=== PATIENT | female | born 1980 | race Caucasian/White ===

== ENCOUNTER 2016-09-13 08:02 | Emergency (ER) | payer MEDICAID ==
[~2016-09-13] VITALS: Wt 90.9 kg
[~2016-09-13 08:02] MED LIST: ACET325T45 PO; ALBU8.5H5 INH; AMO500 PO; AZIT250T94 PO; BEN50 PO; CEPH-443 PO; CIPR500T4 PO; EPIN0.3P4 IM; FIORICET PO; GUAI120S26 PO; HC1C30 TOP; HYDR-762 PO; HYDR-906 PO; IBUP-1542 PO; LEVO750T25 PO; LORA10CA PO; ONDA4TAB35 PO; PRED20TA PO; PRED50TA PO; PROM5SYR2 PO; UDPVCC PO
[2016-09-13] MEDS ORDERED: ONDANSETRON (ODT) 4 MG TAB ODT STA (08:18)
[2016-09-13] MEDS ORDERED: OSLT75C PO (08:20)
[2016-09-13] MEDS ORDERED: TYL500 PO (08:21)
[2016-09-13] MEDS ORDERED: ONDA4TAB8 PO (08:22)
--- NOTE | 2016-09-13 08:26 | ERD ---
ER Documentation Chief Complaint Date/Time DATE: 09/13/16 TIME: 08:24 Chief Complaint cough, angeles, bodyaches, fever, n/v HPI This is a 35-year-old female presents to the ER with a 3 day history of fever, bone pain, body aches, sore throat, vomiting. Vomiting is nonbilious nonbloody. She denies any diarrhea. Patient has been taking ibuprofen for fever and body pain however it has not worked. Patient did not get her flu shot this year. She denies any chest pain or shortness of breath. There are no sick contacts at home. ROS 12 point review of systems was done, all negative except per HPI. Medications Home Meds Active Scripts Ondansetron Hcl* (Zofran*) 4 Mg Tablet, 4 MG PO Q6H for NAUSEA AND/OR VOMITING, #30 TAB Prov:ARIS TOHMPSON 09/13/16 Acetaminophen* (Tylenol*) 500 Mg Tab, 1000 MG PO Q4H Y for PAIN AND OR ELEVATED TEMP for 3 Days, TAB Prov:ARIS THOMPSON 09/13/16 Oseltamivir Phosphate* (Tamiflu*) 75 Mg Capsule, 75 MG PO BID for 5 Days, CAP Prov:ARIS THOMPSON 09/13/16 Hydrocodone/Acetaminophen ([place]oca 5-325 Tablet) 1 Each Tablet, 1 TAB PO Q6H Y for PAIN, #7 TAB Prov:MARISOL DOUGLASS PA-C 08/15/16 Ibuprofen* (Motrin*) 600 Mg Tab, 600 MG PO Q6, #30 TAB Prov:MARISOL DOUGLASS PA-C 08/15/16 Promethazine HCl/Codeine (Prometh-Codein 6.25-10 mg/5 ml) 5 Ml Syrup, 5 ML PO Q6 , #4 OZ Prov:MARISOL DOUGLASS PA-C 05/03/16 Azithromycin* (Zithromax*) 250 Mg Tablet, 250 MG PO .CIARRA DIRECTED, #6 TAB TAKE 500 MG (2 TABS) THE FIRST DAY THEN 250 MG (1 TAB) DAYS 2-5 Prov:MARISOL DOUGLASS PA-C 05/03/16 Amoxicillin* (Amoxicillin*) 500 Mg Cap, 500 MG PO TID for 10 Days, CAP Prov:PLACIDO MILLARD MD 04/20/16 Ibuprofen* (Motrin*) 600 Mg Tab, 600 MG PO Q6, #16 TAB Prov:PLACIDO MILLARD MD 04/20/16 Epinephrine (Epipen 2-Walt) 0.3 Mg/0.3 Ml Pen.injctr, 0.3 MG IM DIRECTED Y for ALLERGIC REACTION, #1 EA Prov:GENET DIXON NP 01/15/16 Acetamin/Butalbital/Caffeine* (Fioricet*) 1 Tab Tab, 1 TAB PO Q4H Y for PAIN LEVEL 1-5 for 20 Days, TAB Prov:GENET DIXON [employer] 01/15/16 Diphenhydramine Hcl* (Benadryl*) 50 Mg Cap, 50 MG PO Q6 Y for itching/ swelling , #30 CAP Prov:GENET DIXON NP 01/15/16 Prednisone* (Prednisone*) 50 Mg Tablet, 50 MG PO DAILY, #5 TAB Prov:GENET DIXON NP 01/15/16 Prednisone* (Prednisone*) 20 Mg Tab, 40 MG PO DAILY for 5 Days, TAB Prov:RONNY CARPENTER 12/07/15 Hydrocortisone* Topical (Hydrocortisone* Topical) 1%-28.35 Gm Cream..g., 1 APPLIC TOP Q6 Y for ITCHING, #1 TUB Prov:RONNY CARPENTER 12/07/15 Diphenhydramine Hcl* (Benadryl*) 50 Mg Cap, 50 MG PO Q6 Y for RASH, #30 CAP Prov:RONNY CARPENTER 12/07/15 Phenylephrine Not-Rnlbvtq-Oldzisqghrdt* (Promethazine VC Codeine* Syrup) 120 Ml Syrup, 5 ML PO Q6 Y for COUGH, #120 ML Prov:NUPUR NIELSEN DO 08/25/15 Acetaminophen* (Acetaminophen*) 325 Mg Tablet, 650 MG PO Q6 Y for PAIN AND OR ELEVATED TEMP, #30 TAB Prov:NUPUR NIELSEN DO 08/25/15 Levofloxacin* (Levaquin*) 750 Mg Tablet, 750 MG PO DAILY for 7 Days, TAB Prov:NUPUR NIELSEN DO 08/25/15 Loratadine* (Claritin*) 10 Mg Capsule, 10 MG PO DAILY, #30 CAP Prov:GENET DIXON NP 05/04/15 Cephalexin* (Keflex*) 500 Mg Capsule, 500 MG PO QID for 10 Days, CAP Prov:GENET DIXON NP 05/04/15 Fyhkezetypg-K-Nzexrbcnrn Hb* (Guaifenesin* DM Syrup) 120 Ml Syrup, 10 ML PO Q4H Y for COUGH, #1 BOTTLE Prov:GENET DIXON NP 05/04/15 Albuterol Sulfate* (Albuterol Sulfate* HFA) 8.5 Gm Hfa.aer.ad, 1-2 PUFF INH Q4 Y for SHORTNESS OF BREATH, #1 EA Prov:GENET DIXON NP 05/04/15 Hydrocodone Bit-Acetaminophen* (Roca*) 10-325 Mg Tablet, 1 TAB PO Q4H Y for PAIN, #30 TAB Prov:TRACIE BOND 03/24/15 Ciprofloxacin Hcl* (Ciprofloxacin Hcl*) 500 Mg Tablet, 500 MG PO BID for 7 Days , TAB Prov:TRACIE BOND 03/24/15 Ondansetron Hcl* (Zofran* ODT) 4 mg -ODT Tab.disper, 4 MG PO Q8 Y for NAUSEA AND /OR VOMITING, #30 TAB Prov:GENET DIXON NP 03/22/15 Allergies Allergies: Coded Allergies: No Known Drug Allergy (Verified Allergy, Unknown, 08/15/16) PMhx/Soc History of Surgery: Yes (cholecystectomy) Anesthesia Reaction: No Hx Neurological Disorder: No Hx Respiratory Disorders: No Hx Cardiac Disorders: No Hx Psychiatric Problems: No Hx Miscellaneous Medical Probl: Yes (DM TYPE 2 DX 8DAYS AGO) Hx Alcohol Use: No Hx Substance Use: No Hx Tobacco Use: No Physical Exam Vitals Vital Signs Date Time Temp Pulse Resp B/P Pulse Ox O2 Delivery O2 Flow Rate FiO2 09/13/16 08:06 99.3 94 20 161/64 96 Physical Exam GENERAL: The patient is well-developed, well-nourished, in no acute distress. NECK: Cervical spine is non tender with no step off. Supple, no nuchal rigidity HEENT: Atraumatic. Pupils equal, round and reactive to light. Extraocular muscles are grossly intact. Conjunctivae pink, no discharge. Bilateral tympanic membranes are clear with no evidence of erythema, effusion or dulling of the light reflex. Tonsilar erythema with no exudates or uvular deviation. Clear rhinorrhea. RESPIRATORY: Clear to auscultation bilaterally. There are no rales, wheezes or rhonchi. HEART: Regular rate and rhythm. No murmurs, clicks, rubs or gallops. EXTREMITIES: No clubbing or cyanosis. Full range of motion. Grossly neurovascularly intact. NEUROLOGIC: Alert and oriented. Cranial nerves II through XII are intact. SKIN: There is no rash. The skin is warm and dry. Results 24 hrs Current Medications Medications (Trade) Dose Ordered Sig/Sena Route PRN Reason Start Time Stop Time Status Last Admin Dose Admin Acetaminophen/ Hydrocodone Bitart (Roca (5/325)) 1 tab ONCE ONCE PO 09/13/16 08:30 09/13/16 08:31 Ibuprofen (Motrin) 600 mg ONCE ONCE PO 09/13/16 08:30 09/13/16 08:31 Ondansetron HCl (Zofran Odt) 4 mg ONCE STAT ODT 09/13/16 08:18 09/13/16 08:20 DC Procedures/MDM Differential diagnosis includes but is not limited to; Viral URI, influenza, allergic rhinitis, bronchitis, pertussis,pneumonia. This is likely the flu. clinical suspicion for pneumonia is low as patient appears well, is not hypoxic or in any respiratory distress. Additionally, patients physical examination is benign. Plan was discussed with patient they understand and agree. Patient needs to follow up with PCP in 1-2 days or return to ER sooner if symptoms worsen. Departure Diagnosis: Primary Impression: Influenza-like symptoms Condition: Stable Patient Instructions: Influenza (Adult) Additional Instructions: Llame al doctor MAANA y deangelo gilson TOSHIA PARA DENTRO DE 1-2 PARKER.Dgale a la secretaria que nosotros le instruimos hacer esta toshia.Avise o llame si conway condicin se empeora antes de la toshia. Regresa aqui si peor o no mejor. ARIS THOMPSON Sep 13, 2016 08:26
[2016-09-13] MEDS ORDERED: HYDROCODONE/APAP (5/325) TAB PO ONE (08:30)
[2016-09-13] MEDS ORDERED: IBUPROFEN 600 MG TAB PO ONE (08:30)
== END 2016-09-13 08:33 | disposition home or self-care (01) ==
LOC: FTE 08:02
DX: R50.9 Fever, unspecified (principal); J02.9 Acute pharyngitis, unspecified; R11.10 Vomiting, unspecified; E11.9 Type 2 diabetes mellitus without complications
CPT/HCPCS: Z7502; Z7610; 99283

== ENCOUNTER 2016-12-22 14:08 | Emergency (ER) | payer MEDICAID ==
[~2016-12-22] VITALS: Ht 162.6 cm; Wt 110.0 kg
[~2016-12-22 14:08] MED LIST changes: +ONDA4TAB8 PO; +OSLT75C PO; +TYL500 PO
[2016-12-22 14:10] VITALS: Ht 162.6 cm; Wt 110.0 kg
[2016-12-22] MEDS ORDERED: METOCLOPRAMIDE 10 MG INJ IV STA (15:55)
[2016-12-22] MEDS ORDERED: DIPHENHYDRAMINE 50 MG INJ IV STA (15:55)
[2016-12-22] MEDS ORDERED: SOD CHLORIDE 0.9% 500 ML IV STA (15:55)
[2016-12-22] MEDS ORDERED: KETOROLAC 30 MG INJ IV STA (15:55)
[2016-12-22 17:34] LABS: ADD SCAN DIFF NO
[2016-12-22 17:36] LABS: ABNORMAL IP MESSAGE 1; BASOPHIL # 0.1 10^3/ul (0.0-0.1); BASOPHILS % 0.3 % (0.0-2.0); EOSINOPHILS # 0.4 10^3/ul (0.0-0.5); EOSINOPHILS % 2.3 % (0.0-7.0); HEMATOCRIT 42.2 % (37.0-47.0); HEMOGLOBIN 13.3 g/dl (12.0-16.0); LYMPHOCYTES # 5.8 10^3/ul (0.8-2.9); LYMPHOCYTES % 32.1 % (15.0-51.0); MEAN CORPUSCULAR HEMOGLOBIN 26.3 pg (29.0-33.0); MEAN CORPUSCULAR HGB CONC 31.5 g/dl (32.0-37.0); MEAN CORPUSCULAR VOLUME 83.4 fl (82.0-101.0); MEAN PLATELET VOLUME 9.3 fl (7.4-10.4); MONOCYTE # 0.8 10^3/ul (0.3-0.9); MONOCYTES % 4.5 % (0.0-11.0); NEUTROPHIL # 10.9 10^3/ul (1.6-7.5); NEUTROPHILS % 60.3 % (39.0-77.0); PLATELET COUNT 448 10^3/UL (140-415); RED BLOOD COUNT 5.06 10^6/ul (4.20-5.40); RED CELL DISTRIBUTION WIDTH 13.3 % (11.5-14.5); WHITE BLOOD COUNT 18.1 10^3/ul (4.8-10.8)
[2016-12-22 17:44] LABS: ADD UMIC YES; URINE BILIRUBIN (Dip) NEGATIVE (NEGATIVE); URINE BLOOD (Dip) 1+ (NEGATIVE); URINE COLOR LT. YELLOW (YELLOW); URINE GLUCOSE (Dip) NEGATIVE (NEGATIVE); URINE KETONES (Dip) NEGATIVE (NEGATIVE); URINE LEUKOCYTE ESTERASE (Dip) NEGATIVE (NEGATIVE); URINE NITRITE (Dip) NEGATIVE (NEGATIVE); URINE TOTAL PROTEIN (Dip) NEGATIVE (NEGATIVE); URINE UROBILINOGEN (Dip) 0.2 E.U./dL (0.1-1.0)
[2016-12-22 17:52] LABS: INR 0.99; PROTIME 13.1 Sec (12.2-14.2)
[2016-12-22 17:53] LABS: PARTIAL THROMBOPLASTIN TIME 28.9 Sec (25.0-35.0)
[2016-12-22 17:55] LABS: ALBUMIN 4.2 g/dl (3.3-4.9); ALBUMIN/GLOBULIN RATIO 1.1; CALCIUM 9.4 mg/dl (8.4-10.2); CREATININE 0.57 mg/dl (0.44-1.00); POTASSIUM 4.1 mmol/L (3.5-5.1)
[2016-12-22] MEDS ORDERED: FIORICET PO (18:15)
--- NOTE | 2016-12-22 18:22 | ERD ---
ER Documentation Chief Complaint Date/Time DATE: 12/22/16 TIME: 18:19 Chief Complaint DIZZY,NECK PAIN,TMEPLETON X 3 DAYS HPI This patient is a 36-year-old female who presents to the emergency department with complaints of headache and neck pain for the past 3 days. The patient took Tylenol today at 9 AM with no relief of symptoms. Patient is additionally on intermittent episodes of vertigo lasting only 3 minutes. Patient denies syncope, fevers, chills, urinary symptoms, nausea, vomiting, diarrhea, or other symptoms at this time. ROS All systems reviewed and are negative except as per history of present illness. Medications Home Meds Active Scripts Acetamin/Butalbital/Caffeine* (Fioricet*) [id number] Tab, 1 TAB PO Q6H Y for PAIN, #10 TAB Prov:RONNY MELARA PA-C 12/22/16 Ondansetron Hcl* (Zofran*) 4 Mg Tablet, 4 MG PO Q6H for NAUSEA AND/OR VOMITING, #30 TAB Prov:ARIS THOMPSON 09/13/16 Acetaminophen* (Tylenol*) 500 Mg Tab, 1000 MG PO Q4H Y for PAIN AND OR ELEVATED TEMP for 3 Days, TAB Prov:ARIS THOMPSON 09/13/16 Oseltamivir Phosphate* (Tamiflu*) 75 Mg Capsule, 75 MG PO BID for 5 Days, CAP Prov:ARIS THOMPSON 09/13/16 Hydrocodone/Acetaminophen ([place] 5-325 Tablet) 1 Each Tablet, 1 TAB PO Q6H Y for PAIN, #7 TAB Prov:MARISOL DOUGLASS PA-C 08/15/16 Ibuprofen* (Motrin*) 600 Mg Tab, 600 MG PO Q6, #30 TAB Prov:MARISOL DOUGLASS PA-C 08/15/16 Promethazine HCl/Codeine (Prometh-Codein 6.25-10 mg/5 ml) 5 Ml Syrup, 5 ML PO Q6 , #4 OZ Prov:MARISOL DOUGLASS PA-C 05/03/16 Azithromycin* (Zithromax*) 250 Mg Tablet, 250 MG PO .ZPACK DIRECTED, #6 TAB TAKE 500 MG (2 TABS) THE FIRST DAY THEN 250 MG (1 TAB) DAYS 2-5 Prov:MARISOL DOUGLASS PA-C 05/03/16 Amoxicillin* (Amoxicillin*) 500 Mg Cap, 500 MG PO TID for 10 Days, CAP Prov:PLACIDO MILLARD MD 04/20/16 Ibuprofen* (Motrin*) 600 Mg Tab, 600 MG PO Q6, #16 TAB Prov:PLACIDO MILLARD MD 04/20/16 Epinephrine (Epipen 2-Walt) 0.3 Mg/0.3 Ml Pen.injctr, 0.3 MG IM DIRECTED Y for ALLERGIC REACTION, #1 EA Prov:GENET DIXON NP 01/15/16 Acetamin/Butalbital/Caffeine* (Fioricet*) 1 Tab Tab, 1 TAB PO Q4H Y for PAIN LEVEL 1-5 for 20 Days, TAB Prov:GENET DIXON NP 01/15/16 Diphenhydramine Hcl* (Benadryl*) 50 Mg Cap, 50 MG PO Q6 Y for itching/ swelling , #30 CAP Prov:GENET DIXON NP 01/15/16 Prednisone* (Prednisone*) 50 Mg Tablet, 50 MG PO DAILY, #5 TAB Prov:GENET DIXON NP 01/15/16 Prednisone* (Prednisone*) 20 Mg Tab, 40 MG PO DAILY for 5 Days, TAB Prov:RONNY CARPENTER 12/07/15 Hydrocortisone* Topical (Hydrocortisone* Topical) 1%-28.35 Gm Cream..g., 1 APPLIC TOP Q6 Y for ITCHING, #1 TUB Prov:RONNY CARPENTER 12/07/15 Diphenhydramine Hcl* (Benadryl*) 50 Mg Cap, 50 MG PO Q6 Y for RASH, #30 CAP Prov:RONNY CARPENTER 12/07/15 Phenylephrine Jxz-Qpsjevc-Qbgdfmbwxjfe* (Promethazine VC Codeine* Syrup) 120 Ml Syrup, 5 ML PO Q6 Y for COUGH, #120 ML Prov:NUPUR NIELSEN DO 08/25/15 Acetaminophen* (Acetaminophen*) 325 Mg Tablet, 650 MG PO Q6 Y for PAIN AND OR ELEVATED TEMP, #30 TAB Prov:NUPUR NIELSEN DO 08/25/15 Levofloxacin* (Levaquin*) 750 Mg Tablet, 750 MG PO DAILY for 7 Days, TAB Prov:NUPUR NIELSEN 08/25/15 Loratadine* (Claritin*) 10 Mg Capsule, 10 MG PO DAILY, #30 CAP Prov:GENET DIXON NP 05/04/15 Cephalexin* (Keflex*) 500 Mg Capsule, 500 MG PO QID for 10 Days, CAP Prov:GENET DIXON NP 05/04/15 Zjvozyfverv-N-Gagmhudwlb Hb* (Guaifenesin* DM Syrup) 120 Ml Syrup, 10 ML PO Q4H Y for COUGH, #1 BOTTLE Prov:GENET DIXON NP 05/04/15 Albuterol Sulfate* (Albuterol Sulfate* HFA) 8.5 Gm Hfa.aer.ad, 1-2 PUFF INH Q4 Y for SHORTNESS OF BREATH, #1 EA Prov:GENET DIXON NP 05/04/15 Hydrocodone Bit-Acetaminophen* ([place]*) 10-325 Mg Tablet, 1 TAB PO Q4H Y for PAIN, #30 TAB Prov:TRACIE BOND 03/24/15 Ciprofloxacin Hcl* (Ciprofloxacin Hcl*) 500 Mg Tablet, 500 MG PO BID for 7 Days , TAB Prov:TRACIE BOND 03/24/15 Ondansetron Hcl* (Zofran* ODT) 4 mg -ODT Tab.disper, 4 MG PO Q8 Y for NAUSEA AND /OR VOMITING, #30 TAB Prov:GENET DIXON NP 03/22/15 Allergies Allergies: Coded Allergies: No Known Drug Allergy (Verified Allergy, Unknown, 12/22/16) PMhx/Soc History of Surgery: Yes (cholecystectomy) Anesthesia Reaction: No Hx Neurological Disorder: No Hx Respiratory Disorders: No Hx Cardiac Disorders: No Hx Psychiatric Problems: No Hx Miscellaneous Medical Probl: Yes (DM TYPE 2 ) Hx Alcohol Use: No Hx Substance Use: No Hx Tobacco Use: No Smoking Status: Never smoker FmHx Noncontributory for chief complaint Physical Exam Vitals Vital Signs Date Time Temp Pulse Resp B/P Pulse Ox O2 Delivery O2 Flow Rate FiO2 12/22/16 14:10 98.6 93 20 129/60 99 Physical Exam Const: The patient is resting comfortably but appears to be in slight pain. Head: Atraumatic Eyes: Normal Conjunctiva ENT: Normal External Ears, Nose and Mouth. Neck: Full range of motion..~ No meningismus. There is no nuchal rigidity. The patient has mild tenderness palpation of the paraspinal muscles of the cervical spine. Resp: Clear to auscultation bilaterally Cardio: Regular rate and rhythm, no murmurs Abd: Soft, non tender, non distended. Normal bowel sounds Skin: No petechiae or rashes Back: No midline or flank tenderness Ext: No cyanosis, or edema Neur: Awake and alert. No neurological deficits. Cranial nerves intact. Strength and sensation intact bilateral upper and lower extremities. There is no weakness noted to one side of the body. Psych: Normal Mood and Affect Result Diagram: 12/22/16171412/22/165 Results 24 hrs Laboratory Tests Test 12/22/16 17:15 White Blood Count 18.110^3/ul Red Blood Count 5.0610^6/ul Hemoglobin 13.3g/dl Hematocrit 42.2% Mean Corpuscular Volume 83.4fl Mean Corpuscular Hemoglobin 26.3pg Mean Corpuscular Hemoglobin Concent 31.5g/dl Red Cell Distribution Width 13.3% Platelet Count 97538^3/UL Mean Platelet Volume 9.3fl Neutrophils % 60.3% Lymphocytes % 32.1% Monocytes % 4.5% Eosinophils % 2.3% Basophils % 0.3% Nucleated Red Blood Cells % 0.0/100WBC Neutrophils # 10.910^3/ul Lymphocytes # 5.810^3/ul Monocytes # 0.810^3/ul Eosinophils # 0.410^3/ul Basophils # 0.110^3/ul Nucleated Red Blood Cells # 0.010^3/ul Prothrombin Time 13.1Sec Prothrombin Time Ratio 1.0 INR International Normalized Ratio 0.99 Activated Partial Thromboplast Time 28.9Sec Urine Color LT. YELLOW Urine Clarity CLEAR Urine pH 6.0 Urine Specific [place] 1.015 Urine Ketones NEGATIVE Urine Nitrite NEGATIVE Urine Bilirubin NEGATIVE Urine Urobilinogen 0.2 E.U./dL Urine Leukocyte Esterase NEGATIVE Urine Microscopic RBC 2-5/HPF Urine Microscopic WBC 0-2/HPF Urine Epithelial Cells OCCASIONAL Urine Hemoglobin 1+ Urine Glucose NEGATIVE% Urine Total Protein NEGATIVE Sodium Level 137mmol/L Potassium Level 4.1mmol/L Chloride Level 102mmol/L Carbon Dioxide Level 28mmol/L Anion Gap 11 Blood Urea Nitrogen 12mg/dl Creatinine 0.57mg/dl Glucose Level 124mg/dl Calcium Level 9.4mg/dl Total Bilirubin 0.0mg/dl Direct Bilirubin 0.00mg/dl Indirect Bilirubin 0.0mg/dl Aspartate Amino Transf (AST/SGOT) 24IU/L Alanine Aminotransferase (ALT/SGPT) 30IU/L Alkaline Phosphatase 156IU/L Total Protein 8.0g/dl Albumin 4.2g/dl Globulin 3.80g/dl Albumin/Globulin Ratio 1.10 Current Medications Medications (Trade) Dose Ordered Sig/Sena Route PRN Reason Start Time Stop Time Status Last Admin Dose Admin Sodium Chloride (NS) 500 ml @ 500 mls/hr Q1H STAT IV 12/22/16 15:55 12/22/16 16:54 DC 12/22/16 17:18 Metoclopramide HCl (Reglan) 10 mg ONCE STAT IV 12/22/16 15:55 12/22/16 15:58 DC 12/22/16 17:18 Ketorolac Tromethamine (Toradol) 30 mg ONCE STAT IV 12/22/16 15:55 12/22/16 15:58 DC 12/22/16 17:18 Diphenhydramine HCl (Benadryl) 25 mg ONCE STAT IV 12/22/16 15:55 12/22/16 15:58 DC 12/22/16 17:18 Procedures/[facility] EMERGENCY DEPARTMENT COURSE / MEDICAL DECISION MAKING: This is a 28-year-old female who comes to the emergency room secondary to complaints of headache and neck pain. The patient was given IV Toradol, IV Benadryl, and IV Reglan in the department. On re-evaluation, the patient was feeling dramatically improved. Lab results reviewed and showed slight leukocytosis but no left shift. Urinalysis was not concerning for infection or proteinuria. All other lab results were within normal limits. The primary diagnosis is headache of unclear etiology. I have low suspicion for meningitis, CVA, TIA, status migrainosus, or other emergent conditions at this time. Discharge: I have discussed the lab results and diagnostic findings with the patient and answered any questions or concerns. The patient was discharged with a prescription for Fioricet. The patient is to follow-up here in 24 hours for repeat evaluation. The patient was advised to followup with their PMD in 1-2 days and to return to the Emergency Department if there are any new or worsening symptoms. The patient understood and agreed with the diagnosis, treatment and plan. The patient is stable for discharge at this time. I discussed this case with Dr. Obie Voss, supervising ED physician who agreed with the ED course. Departure Diagnosis: Primary Impression: Headache Headache type: unspecified Headache chronicity pattern: acute headache Intractability: not intractable Qualified Code: R51 - Acute nonintractable headache, unspecified headache type Condition: Fair Patient Instructions: Self-Care for Headaches Referrals: [facility] Usted se [place] hecho un examen mdico de control que le indica que no est en gilson condicin que requiera tratamiento urgente en el Departamento de Emergencia. Un estudio ms profundo y el tratamiento de conway condicin pueden esperar sin ningn riesgo hasta que usted sea atendida/o en el consultorio de conway mdico o gilson cl romel. Es responsabilidad suya arreglar gilson kina para el seguimiento del parul. MANEJO DE CONDICIONES NO URGENTES EN EL FUTURO 1) Si usted tiene un mdico de atencin primaria: Usted debera llamar a conway mdico de atencin primaria antes de venir al departamento de emergencia. Despus de las horas de consultorio, conway doctor o conway asociado/a est disponible por telfono. El mdico o enfermero de berta en el servicio telefnico puede asesorarle por silvina medio para atender el problema, o parul contrario se puede programar gilson kina. 2) Si usted no tiene un mdico de atencin primaria: Llame al mdico o clnica de referencia que aparece abajo dale las horas de consultorio para hacer gilson kina para que le vean. CLINICAS: [facility] [phone] [facility] [phone] [facility] [phone] [place] [phone] [address] [place] [id number] [phone] [place] [id number] [phone] Additional Instructions: Regrese en 24 horas por otra evaluacion. Ir a doctor primario in 1-3 henderson. Usar instrucciones cuando carrie medicamento. RONNY MELARA PA-C Dec 22, 2016 18:22
[2016-12-22 18:28] VITALS: BP 133/67; PULSE 86; RESP 16; TEMP 97.9
== END 2016-12-22 18:28 | disposition home or self-care (01) ==
LOC: FTE 14:08
DX: R51 Headache (principal); E11.9 Type 2 diabetes mellitus without complications; M54.2 Cervicalgia
CPT/HCPCS: 36415; 80053; 81001; 85025; 85610; 85730; 96374; 96375; J1200; J1885; J2765; J7040; Z7502; 81003

== ENCOUNTER 2016-12-24 19:31 | Emergency (ER) | payer MEDICAID ==
[~2016-12-24] VITALS: Ht 165.1 cm; Wt 121.0 kg
[2016-12-24 19:39] VITALS: Ht 165.1 cm; Wt 121.0 kg
[2016-12-24] MEDS ORDERED: DICLOFENAC SODIUM 37.5 MG/ML VIAL IV STA (21:11)
[2016-12-24] MEDS ORDERED: [UNRECOGNIZED DRUG - CODE] PO (21:32)
--- NOTE | 2016-12-24 21:32 | RADRPT ---
PROCEDURE: XR Chest. CLINICAL INDICATION: Chest Pain. TECHNIQUE: PA and Lateral views of the chest were obtained. COMPARISON: None. FINDINGS: The soft tissues are normal. The bony elements are normal. The left ventricle is borderline enlarg ed. The cardiomediastinal silhouette and hilar structures are normal. The pulmonary vasculature is normal. There is a left-sided aorta. The lungs are clear. The costophrenic angles are normal. IMPRESSION: 1. Borderline left ventricular enlargement. 2. No evidence of active cardiopulmonary disease. RPTAT:AAJJ Physician Tiff Date Time Electronically viewed and signed by Physician Tiff on 12/24/2016 21:32 /
[2016-12-24] MEDS ORDERED: [UNRECOGNIZED DRUG - CODE] PO (21:33)
[2016-12-24 21:59] LABS: ADD SCAN DIFF NO
[2016-12-24 22:01] LABS: ABNORMAL IP MESSAGE 1; HEMATOCRIT 38.8 % (37.0-47.0); HEMOGLOBIN 12.4 g/dl (12.0-16.0); MEAN CORPUSCULAR HEMOGLOBIN 26.7 pg (29.0-33.0); MEAN CORPUSCULAR VOLUME 83.6 fl (82.0-101.0); MEAN PLATELET VOLUME 9.8 fl (7.4-10.4); PLATELET COUNT 422 10^3/UL (140-415); RED BLOOD COUNT 4.64 10^6/ul (4.20-5.40); RED CELL DISTRIBUTION WIDTH 13.1 % (11.5-14.5); WHITE BLOOD COUNT 17.3 10^3/ul (4.8-10.8)
[2016-12-24 22:11] LABS: ALBUMIN 3.9 g/dl (3.3-4.9); CHLORIDE 97 mmol/L (97-110); SODIUM 138 mmol/L (135-144)
[2016-12-24 22:12] LABS: INR 1.01; POTASSIUM 3.6 mmol/L (3.5-5.1); PROTIME 13.3 Sec (12.2-14.2)
[2016-12-24 22:13] LABS: CREATININE 0.57 mg/dl (0.44-1.00)
[2016-12-24 22:14] LABS: ALANINE AMINOTRANSFERASE 29 IU/L (13-69); ALBUMIN/GLOBULIN RATIO 1.05; ALKALINE PHOSPHATASE 136 IU/L (42-121); ANION GAP 16 (8-16); ASPARTATE AMINO TRANSFERASE 17 IU/L (15-46); BILIRUBIN,INDIRECT 0.1 mg/dl (0-1.1); BILIRUBIN,TOTAL 0.1 mg/dl (0.2-1.3); BLOOD UREA NITROGEN 12 mg/dl (7-20); CARBON DIOXIDE 29 mmol/L (21-31); CREATINE KINASE 46 IU/L (23-200); GLUCOSE 197 mg/dl (70-220); TOTAL PROTEIN 7.6 g/dl (6.1-8.1)
[2016-12-24 22:15] LABS: CALCIUM 9.2 mg/dl (8.4-10.2)
[2016-12-24 22:23] LABS: B-TYPE NATRIURETIC PEPTIDE 61 PG/ML (0-125); CK-MB 0.23 ng/ml (0.0-2.4)
[2016-12-24 22:30] LABS: TROPONIN-I < 0.012 ng/ml (0.00-0.12)
--- NOTE | 2016-12-24 22:36 | ERD ---
ER Documentation Chief Complaint Date/Time DATE: 12/24/16 TIME: 22:31 Chief Complaint MIDSTERNAL CP RADIATING TO LT ARM X3 DAYS. WORSENED TODAY. +SOB. HPI This is a 36-year-old female with no past medical history that presents to the emergency department complaining of midsternal left-sided chest pain that is a dull achy sensation is exacerbated with movement whenever she moves her left upper extremity. She denies any recent remote trauma to her chest wall and is right-handed dominant. She did not take any analgesic medication prior to arrival. She denies any numbness of her upper extremity. She denies any back pain. The patient indicates that the pain began to worsen today therefore she came to the emergency department to be further evaluated. The pain is 7 out of 10 in intensity. She denies any recent travel or prolonged immobilization but does indicate that the pain is worse when she takes in a deep breath. The patient denies any abdominal pain. ROS All systems reviewed and are negative except as per history of present illness. Medications Home Meds Active Scripts Acetaminophen* (Tylenol*) 500 Mg Tab, 1000 MG PO Q4H Y for PAIN AND OR ELEVATED TEMP for 3 Days, TAB Prov:ARIS THOMPSON 09/13/16 Ibuprofen* (Motrin*) 600 Mg Tab, 600 MG PO Q6, #30 TAB Prov:MARISOL DOUGLASS PA-C 08/15/16 Loratadine* (Claritin*) 10 Mg Capsule, 10 MG PO DAILY, #30 CAP Prov:GENET DIXON SHUT OFF WORKER 05/04/15 Reported Medications Flaxseed Oil (FLAXSEED) 1,000 Mg Capsule, 1 TAB-CAP PO, CAP 12/24/16 Multivitamin,Therapeutic (Thera-Tabs) 1 Each Tablet, 1 EACH PO DAILY, TAB 12/24/16 Discontinued Scripts Acetamin/Butalbital/Caffeine* (Fioricet*) [id number] Tab, 1 TAB PO Q6H Y for PAIN, #10 TAB Prov:RONNY MELARA PA-C 12/22/16 Ondansetron Hcl* (Zofran*) 4 Mg Tablet, 4 MG PO Q6H for NAUSEA AND/OR VOMITING, #30 TAB Prov:ARIS THOMPSON 09/13/16 Oseltamivir Phosphate* (Tamiflu*) 75 Mg Capsule, 75 MG PO BID for 5 Days, CAP Prov:ARIS THOMPSON 09/13/16 Hydrocodone/Acetaminophen ([place] 5-325 Tablet) 1 Each Tablet, 1 TAB PO Q6H Y for PAIN, #7 TAB Prov:MARISOL DOUGLASS PA-C 08/15/16 Promethazine HCl/Codeine (Prometh-Codein 6.25-10 mg/5 ml) 5 Ml Syrup, 5 ML PO Q6 , #4 OZ Prov:MARISOL DOUGLASS PA-C 05/03/16 Azithromycin* (Zithromax*) 250 Mg Tablet, 250 MG PO .ZPACK DIRECTED, #6 TAB TAKE 500 MG (2 TABS) THE FIRST DAY THEN 250 MG (1 TAB) DAYS 2-5 Prov:MARISOL DOUGLASS PA-C 05/03/16 Amoxicillin* (Amoxicillin*) 500 Mg Cap, 500 MG PO TID for 10 Days, CAP Prov:PLACIDO MILLARD MD 04/20/16 Ibuprofen* (Motrin*) 600 Mg Tab, 600 MG PO Q6, #16 TAB Prov:PLACIDO MILLARD MD 04/20/16 Epinephrine (Epipen 2-Walt) 0.3 Mg/0.3 Ml Pen.injctr, 0.3 MG IM DIRECTED Y for ALLERGIC REACTION, #1 EA Prov:GENET DIXON NP 01/15/16 Acetamin/Butalbital/Caffeine* (Fioricet*) 1 Tab Tab, 1 TAB PO Q4H Y for PAIN LEVEL 1-5 for 20 Days, TAB Prov:GENET DIXON NP 01/15/16 Diphenhydramine Hcl* (Benadryl*) 50 Mg Cap, 50 MG PO Q6 Y for itching/ swelling , #30 CAP Prov:GENET DIXON NP 01/15/16 Prednisone* (Prednisone*) 50 Mg Tablet, 50 MG PO DAILY, #5 TAB Prov:GENET DIXON NP 01/15/16 Prednisone* (Prednisone*) 20 Mg Tab, 40 MG PO DAILY for 5 Days, TAB Prov:RONNY CARPENTER 12/07/15 Hydrocortisone* Topical (Hydrocortisone* Topical) 1%-28.35 Gm Cream..g., 1 APPLIC TOP Q6 Y for ITCHING, #1 TUB Prov:RONYN CARPENTER S. 12/07/15 Diphenhydramine Hcl* (Benadryl*) 50 Mg Cap, 50 MG PO Q6 Y for RASH, #30 CAP Prov:RONNY CARPENTER S. 12/07/15 Phenylephrine Pwf-Hlvhxbh-Rwbzhaknvsfm* (Promethazine VC Codeine* Syrup) 120 Ml Syrup, 5 ML PO Q6 Y for COUGH, #120 ML Prov:MORALESNUPUR DO 08/25/15 Acetaminophen* (Acetaminophen*) 325 Mg Tablet, 650 MG PO Q6 Y for PAIN AND OR ELEVATED TEMP, #30 TAB [facility] 08/25/15 Levofloxacin* (Levaquin*) 750 Mg Tablet, 750 MG PO DAILY for 7 Days, TAB Prov:[facility] 08/25/15 Cephalexin* (Keflex*) 500 Mg Capsule, 500 MG PO QID for 10 Days, CAP Prov:GENET DIXON NP 05/04/15 Eiozwnsqtri-R-Fakieykwef Hb* (Guaifenesin* DM Syrup) 120 Ml Syrup, 10 ML PO Q4H Y for COUGH, #1 BOTTLE Prov:GENET DIXON NP 05/04/15 Albuterol Sulfate* (Albuterol Sulfate* HFA) 8.5 Gm Hfa.aer.ad, 1-2 PUFF INH Q4 Y for SHORTNESS OF BREATH, #1 EA Prov:GENET DIXON NP 05/04/15 Hydrocodone Bit-Acetaminophen* ([place]*) 10-325 Mg Tablet, 1 TAB PO Q4H Y for PAIN, #30 TAB Prov:TRACIE BOND 03/24/15 Ciprofloxacin Hcl* (Ciprofloxacin Hcl*) 500 Mg Tablet, 500 MG PO BID for 7 Days , TAB Prov:TRACIE BOND 03/24/15 Ondansetron Hcl* (Zofran* ODT) 4 mg -ODT Tab.disper, 4 MG PO Q8 Y for NAUSEA AND /OR VOMITING, #30 TAB Prov:GENET DIXON NP 03/22/15 Allergies Allergies: Coded Allergies: No Known Drug Allergy (Verified Allergy, Unknown, 12/24/16) PMhx/Soc History of Surgery: Yes (cholecystectomy, C SECTION, tubal Ligation ) Anesthesia Reaction: No Hx Neurological Disorder: No Hx Respiratory Disorders: No Hx Cardiac Disorders: No Hx Psychiatric Problems: No Hx Miscellaneous Medical Probl: Yes (DM TYPE 2 ) Hx Alcohol Use: No Hx Substance Use: No Hx Tobacco Use: No Smoking Status: Never smoker Physical Exam Vitals Vital Signs Date Time Temp Pulse Resp B/P Pulse Ox O2 Delivery O2 Flow Rate FiO2 12/24/16 21:39 98.4 89 20 148/96 100 Room Air 12/24/16 19:39 98.9 88 20 139/65 100 Physical Exam Constitutional:Well-developed. Well-nourished. HEENT:Normocephalic. Atraumatic.Pupils were equal round reactive to light. Moist mucous membranes.No tonsillar exudates. Neck: No nuchal rigidity. No lymphadenopathy. No posterior cervical spine tenderness or step-offs. Respiratory: Not using accessory muscles of respiration.Lungs were clear to auscultation bilaterally. No rhonchi. No rales. No wheezing. Cardiovascular: Regular rate regular rhythm.No murmurs. No rubs were appreciated.S1, S2 normal. Distal pulses are palpable 2+ bilaterally. Reproducible left chest wall tenderness with no crepitus no ecchymosis no flail chest GI: Abdomen was soft. Nontender. Non Distended. No pulsatile abdominal masses or bruits. No rebound. No guarding. Bowel sounds were present and normal. Muscle skeletal: Full range of motion of both the upper and lower extremities bilaterally.Normal muscle tone.No assymetrical calf tenderness or swelling. Skin: No petechia, no purpura. No lesions on the palms or the soles of the feet. No maculopapular rash. NEURO: Patient was alert, awake, orientated x3.No facial droop. Gait observed and normal with no ataxia.Speech had regular rate and rhythm. No focal neurological deficits. Result Diagram: 12/24/16204912/24/162049 Results 24 hrs Laboratory Tests Test 12/24/16 20:50 White Blood Count 17.310^3/ul Red Blood Count 4.6410^6/ul Hemoglobin 12.4g/dl Hematocrit 38.8% Mean Corpuscular Volume 83.6fl Mean Corpuscular Hemoglobin 26.7pg Mean Corpuscular Hemoglobin Concent 32.0g/dl Red Cell Distribution Width 13.1% Platelet Count 58707^3/UL Mean Platelet Volume 9.8fl Prothrombin Time 13.3Sec Prothrombin Time Ratio 1.0 INR International Normalized Ratio 1.01 Activated Partial Thromboplast Time 30.0Sec Sodium Level 138mmol/L Potassium Level 3.6mmol/L Chloride Level 97mmol/L Carbon Dioxide Level Pending Anion Gap Pending Blood Urea Nitrogen Pending Creatinine Pending Glucose Level Pending Calcium Level Pending Total Bilirubin Pending Direct Bilirubin Pending Indirect Bilirubin Pending Aspartate Amino Transf (AST/SGOT) Pending Alanine Aminotransferase (ALT/SGPT) Pending Alkaline Phosphatase Pending Creatine Kinase Pending Creatine Kinase Index Pending Creatinine Kinase MB (Mass) Pending Troponin I Pending B-Type Natriuretic Peptide Pending Total Protein Pending Albumin 3.9g/dl Globulin Pending Albumin/Globulin Ratio Pending Serum HCG, Qualitative NEGATIVE Current Medications Medications (Trade) Dose Ordered Sig/Sena Route PRN Reason Start Time Stop Time Status Last Admin Dose Admin Diclofenac Sodium (Dyloject) 37.5 mg ONCE STAT IV 12/24/16 21:11 12/24/16 21:12 DC 12/24/16 21:20 Procedures/MDM The patient presented to the emergency department complaining of chest pain. My clinical evaluation and workup was to distinguish minor causes of chest pain from acute life threatening cardiopulmonary causes such as myocardial infarction , pulmonary embolism, aortic dissection, esophageal rupture, cardiac tamponade, The patient was placed on a grade and center marker, continuous pulse oximetry and IV access established by nursing staff. Patient was given IV dye allergic as well as 325 mg of aspirin p.o., 12 Lead EKG tracing ordered and reviewed by myself showed: Normal sinus rhythm of 88 bpm and no arrhythmia. SD interval normal. QRS duration normal. No ST segment elevation No ST segment depression. No changes consistent with acute ischemia. Obtained a 1 view chest radiograph for and reviewed by myself as well as the radiologist which indicated the followin. Borderline left ventricular enlargement. 2. No evidence of active cardiopulmonary disease. Given that the patient was experiencing no shortness of breath and did obtain a CT scan of the chest with IV contrast which showed no evidence of pulmonary embolism or aortic dissection. The patient had leukocytosis with a white blood cell count of 17.3 and no left shift likely secondary to an acute stress reaction or viral etiology. The patient had no evidence of sepsis and no other electrolyte abnormalities The patients chest pain was reproduced by palpation and horizontal flexion of the arms. It was my clinical impression that the pain was a result of inflammation of the skin and subcutaneous structures of the chest wall versus myocardial ischemia. I felt the patient had low-risk chest pain and could therefore be safely discharged with close follow-up. Departure Diagnosis: Primary Impression: Costochondritis, acute Additional Impression: Pleuritic chest pain Condition: Fair TITI XIE Dec 24, 2016 22:35
[2016-12-24 22:52] LABS: BASOPHIL # 0.2 10^3/ul (0.0-0.1); EOSINOPHILS # 0.5 10^3/ul (0.0-0.5); LYMPHOCYTES # 7.6 10^3/ul (0.8-2.9); MONOCYTE # 0.9 10^3/ul (0.3-0.9); NEUTROPHIL # 7.6 10^3/ul (1.6-7.5)
[2016-12-24] MEDS ORDERED: NAPR-260 PO (22:55)
[2016-12-25] MEDS ORDERED: IOHEXOL 300MG/ML 150 ML BTL ONE (00:19)
[2016-12-25] MEDS ORDERED: SOD CHLORIDE 0.9% 100 ML ONE (00:19)
[2016-12-25 01:00] VITALS: BP 153/79; PULSE 96; RESP 18; TEMP 98.4
--- NOTE | 2016-12-25 01:32 | RADRPT ---
PROCEDURE: CTA CHEST WITH CONTRAST CLINICAL INDICATION: 36-year-old female with shortness of breath. TECHNIQUE: The study was performed utilizing a GE Grid2020peed VCT 64-slice CT scanner. Direct axi al sections were obtained from the thoracic inlet through the chest to the upper abdomen with a bolu s injection of 100 cc of Omnipaque-300 nonionic contrast material. Sagittal, coronal and maximal int ensity projections re-formations were obtained. Automated exposure control and iterative reconstruct ion techniques were utilized for this examination. The images were reviewed on a PACS workstation. CTD/vol = 69.3 mGy; Total Exam DLP = 821.5 mGy-cm. COMPARISON: None. FINDINGS: The aorta is without aneurysmal dilatation or dissection. There are small lymph nodes seen within th e mediastinum which are not pathologic by size criteria. The central pulmonary arteries are without evidence for filling defect to suggest pulmonary embolus or thrombus. There is incomplete opacificat ion of the pulmonary vessels limiting evaluation of the distal branches. There is no evidence for a n infiltrate. No abnormal soft tissue masses or nodular densities are visualized. No evidence for a pneumothorax. There is limbus vertebra involving the anterior-superior aspect of the T12 vertebral body with a Schmorl's node. Scans through the upper abdomen reveals that the upper liver has diffuse decreased density consisten t with fatty infiltration. Surgical clips are seen within the gallbladder fossa from prior cholecys tectomy. The adrenal glands have a normal appearance. The upper kidneys are functional and are with out evidence for obstruction. IMPRESSION: 1. No CTA evidence for thoracic aortic aneurysm/dissection or central pulmonary embolus. 2. Fatty infiltration of the liver. 3. Status post cholecystectomy. .Mervin Zambrano MD, MD Date Time Electronically viewed and signed by .Mervin Zambrano MD, MD on 12/25/2016 01:32 .M/
== END 2016-12-25 01:41 | disposition home or self-care (01) ==
LOC: E/R 19:31
DX: R07.89 Other chest pain (principal); M94.0 Chondrocostal junction syndrome [Tietze]; E11.9 Type 2 diabetes mellitus without complications
CPT/HCPCS: 71010; 71275; 80053; 82550; 82553; 83880; 84484; 84703; 85025; 85610; 85730; 93005; 96374; Q9967; Z7502; Z7610

== ENCOUNTER 2017-01-21 19:19 | Emergency (ER) | payer MEDICAID ==
[~2017-01-21] VITALS: Ht 170.2 cm; Wt 120.0 kg
[~2017-01-21 19:19] MED LIST changes: -ACET325T45 PO; -ALBU8.5H5 INH; -AMO500 PO; -AZIT250T94 PO; -BEN50 PO; -CEPH-443 PO; -CIPR500T4 PO; -EPIN0.3P4 IM; -FIORICET PO; -GUAI120S26 PO; -HC1C30 TOP; -HYDR-762 PO; -HYDR-906 PO; -LEVO750T25 PO; +NAPR-260 PO; -ONDA4TAB35 PO; -ONDA4TAB8 PO; -OSLT75C PO; -PRED20TA PO; -PRED50TA PO; -PROM5SYR2 PO; -UDPVCC PO; +[UNRECOGNIZED DRUG - CODE] PO; +[UNRECOGNIZED DRUG - CODE] PO
[2017-01-21 19:23] VITALS: Ht 170.2 cm; Wt 120.0 kg
[2017-01-21] MEDS ORDERED: FIORICET PO (19:42)
--- NOTE | 2017-01-21 19:42 | ERD ---
ER Documentation Chief Complaint Date/Time DATE: 01/21/17 TIME: 19:40 Chief Complaint NECK PAIN X2 DAYS. HPI This is a 36-year-old female presents to the emergency room for medication refill. The patient states that she does take Fioricet for migraine headaches and ran out of her Fioricet. She states that the Fioricet relieves all of her pain. She states that she called her primary care physician however can get to his office. The patient denies any difference in her migraine from today from her normal migraines. No fever or blurred vision or head trauma. ROS All systems reviewed and are negative except as per history of present illness. Medications Home Meds Active Scripts Naproxen* (Naprosyn*) 500 Mg Tablet, 500 MG PO BID Y for PAIN AND/OR INFLAMMATION, #30 TAB Prov:TITI XIE 12/24/16 Acetaminophen* (Tylenol*) 500 Mg Tab, 1000 MG PO Q4H Y for PAIN AND OR ELEVATED TEMP for 3 Days, TAB Prov:ARIS THOMPSON 09/13/16 Ibuprofen* (Motrin*) 600 Mg Tab, 600 MG PO Q6, #30 TAB Prov:MARISOL DOUGLASS PA-C 08/15/16 Loratadine* (Claritin*) 10 Mg Capsule, 10 MG PO DAILY, #30 CAP Prov:GENET DIXON NP 05/04/15 Reported Medications Flaxseed Oil (FLAXSEED) 1,000 Mg Capsule, 1 TAB-CAP PO, CAP 12/24/16 Multivitamin,Therapeutic (Thera-Tabs) 1 Each Tablet, 1 EACH PO DAILY, TAB 12/24/16 Allergies Allergies: Coded Allergies: No Known Drug Allergy (Verified Allergy, Unknown, 12/24/16) PMhx/Soc History of Surgery: Yes (cholecystectomy, C SECTION, tubal Ligation ) Anesthesia Reaction: No Hx Neurological Disorder: No Hx Respiratory Disorders: No Hx Cardiac Disorders: No Hx Psychiatric Problems: No Hx Miscellaneous Medical Probl: Yes (DM TYPE 2 ) Hx Alcohol Use: No Hx Substance Use: No Hx Tobacco Use: No Smoking Status: Never smoker Physical Exam Vitals Vital Signs Date Time Temp Pulse Resp B/P Pulse Ox O2 Delivery O2 Flow Rate FiO2 01/21/17 19:23 98.8 88 18 140/89 97 Physical Exam Const: No acute distress Head: Atraumatic Eyes: Normal Conjunctiva ENT: Normal External Ears, Nose and Mouth. Neck: Full range of motion..~ No meningismus. Resp: Clear to auscultation bilaterally Cardio: Regular rate and rhythm, no murmurs Abd: Soft, non tender, non distended. Normal bowel sounds Skin: No petechiae or rashes Back: No midline or flank tenderness Ext: No cyanosis, or edema Neur: Awake and alert Psych: Normal Mood and Affect Procedures/MDM This 36-year-old female presents to the emergency room for evaluation of medication refill of her Fioricet. When I evaluated the patient she was alert and oriented to person place and time, no focal neurological deficits. No meningismus, negative Kernig sign, negative urgency sign. Afebrile and hemodynamically stable. The patient will be given a prescription for Fioricet at this time Departure Diagnosis: Primary Impression: Encounter for medication refill Additional Impression: Migraine headache Condition: Stable GONZALO MONTENEGRO DO January 21, 2017 19:42
== END 2017-01-21 20:14 | disposition home or self-care (01) ==
LOC: FTE 19:19
DX: Z76.0 Encounter for issue of repeat prescription (principal); G43.909 Migraine, unspecified, not intractable, without status migrainosus; E11.9 Type 2 diabetes mellitus without complications
CPT/HCPCS: 99281

== ENCOUNTER 2017-02-21 14:18 | Emergency (ER) | payer MEDICAID ==
[~2017-02-21] VITALS: Ht 157.5 cm; Wt 100.0 kg
[~2017-02-21 14:18] MED LIST changes: +FIORICET PO
[2017-02-21 14:20] VITALS: Ht 157.5 cm; Wt 100.0 kg
[2017-02-21] MEDS ORDERED: ACET325T33 PO (14:55)
[2017-02-21] MEDS ORDERED: AMO500 PO (14:55)
--- NOTE | 2017-02-21 15:08 | ERD ---
ER Documentation Chief Complaint Date/Time DATE: 02/21/17 TIME: 15:[address], BODY ACHES X 3 DAYS HPI 36-year-old female patient with no significant past medical history presents to the ED complaining of sore throat, body aches that started 3 days ago. Patient' s daughter reported that patient had pain with swallowing however denies any difficulty swallowing. Describes the pain as achy and rates it a 7 out of 10. Patient tried taking Advil with no relief of her symptoms. Denies any chest pain, shortness of breath, wheezing, abdominal pain, nausea, vomiting, diarrhea , rashes. Denies any sick contacts. ROS All systems reviewed and are negative except as per history of present illness. Medications Home Meds Active Scripts Amoxicillin* (Amoxicillin*) 500 Mg Cap, 500 MG PO BID for 10 Days, CAP Prov:JERROD VALENCIA PA-C 02/21/17 Acetaminophen* (Tylenol*) 325 Mg Tablet, 2 TAB PO Q6 Y for PAIN AND OR ELEVATED TEMP, #20 TAB Prov:JERROD VALENCIA PA-C 02/21/17 Acetamin/Butalbital/Caffeine* (Fioricet*) [id number] Tab, 1 TAB PO Q6H Y for PAIN, #20 TAB Prov:GONZALO MONTENEGRO DO 01/21/17 Naproxen* (Naprosyn*) 500 Mg Tablet, 500 MG PO BID Y for PAIN AND/OR INFLAMMATION, #30 TAB Prov:TITI XIE 12/24/16 Acetaminophen* (Tylenol*) 500 Mg Tab, 1000 MG PO Q4H Y for PAIN AND OR ELEVATED TEMP for 3 Days, TAB Prov:ARIS THOMPSON 09/13/16 Ibuprofen* (Motrin*) 600 Mg Tab, 600 MG PO Q6, #30 TAB Prov:MARISOL DOUGLASS PA-C 08/15/16 Loratadine* (Claritin*) 10 Mg Capsule, 10 MG PO DAILY, #30 CAP Prov:GENET DIXON NP 05/04/15 Reported Medications Flaxseed Oil (FLAXSEED) 1,000 Mg Capsule, 1 TAB-CAP PO, CAP 12/24/16 Multivitamin,Therapeutic (Thera-Tabs) 1 Each Tablet, 1 EACH PO DAILY, TAB 12/24/16 Allergies Allergies: Coded Allergies: No Known Drug Allergy (Verified Allergy, Unknown, 12/24/16) PMhx/Soc History of Surgery: Yes (cholecystectomy, C SECTION, tubal Ligation ) Anesthesia Reaction: No Hx Neurological Disorder: No Hx Respiratory Disorders: No Hx Cardiac Disorders: No Hx Psychiatric Problems: No Hx Miscellaneous Medical Probl: Yes (DM TYPE 2 ) Hx Alcohol Use: No Hx Substance Use: No Hx Tobacco Use: No Smoking Status: Never smoker Physical Exam Vitals Vital Signs Date Time Temp Pulse Resp B/P Pulse Ox O2 Delivery O2 Flow Rate FiO2 02/21/17 14:20 98.2 18 160/74 99 Physical Exam Const: [id number]-[id number]-mtyuekfhv, well-nourished. In no acute distress. Head: Atraumatic, normocephalic Eyes: Normal Conjunctiva without injection. No purulent discharge. PERRL. EOMI ENT: Normal external ear. Ear canal without erythema. Tympanic membrane pearly hooper without effusion or bulging. Nasal canal clear with normal turbinates. Moist oropharynx with left tonsillar exudates. Non-erythematous pharynx. Uvula midline. No drooling. No trismus. Neck: Full range of motion. No meningismus. No cervical lymphadenopathy. Resp: Clear to auscultation bilaterally. No wheezing, rhonchi, rales, or crackles. No accessory muscle use. No retractions. Cardio: Regular rate and rhythm. No murmurs, rubs or gallops. Abd: Soft, non tender, non distended. Normal bowel sounds. No palpable masses. No rebound tenderness. No guarding. Skin: No petechiae or rashes Back: No midline tenderness. No CVA tenderness. Ext: No cyanosis, or edema. Neur: Awake and alert. Psych: Normal Mood and Affect Procedures/MDM 36-year-old female patient with no significant past medical history presents the ED complaining of sore throat, body aches, fever that started 3 days ago. Patient is afebrile and nontoxic-appearing. Patient has normal vital signs. Patient's blood pressure is 160/74. Patient's blood pressure was elevated (>120 /80) but appears stable without evidence of hypertension emergency or urgency. The patient was counseled about the risks of hypertension and urged to pursue outpatient monitoring and therapy within a week with their primary care physician. Patient's physical exam is consistent with presumed strep pharyngitis. Based on Cent[employer]'s Criteria, patient has reported fever at home, exudates on left tonsil, no cough. Patient is appropriate for outpatient antibiotics. Patient's physical exam include lungs which were clear to auscultation and a normal pulse oximetry. Bilateral ears pearly paula. No tenderness to palpation of tragus or mastoid. Low suspicion for mastoiditis, otitis externa, otitis media. Patient is speaking in full sentences. There is a low suspicion for pneumonia, epiglottitis, croup, sinusitis, peritonsillar abscess, hands foot mouth disease , scarlet fever, Antoni's angina, retropharyngeal abscess, meningitis, sepsis, acute abdomen or other emergent conditions. Discharge medications: Tylenol, Amoxicillin Follow up with primary care physician in 1-2 days. Instructed patient to return to the ED sooner for any worsening symptoms. Patient's questions were answered. Patient understood and agreed with discharge plan. Patient discharged stable. Departure Diagnosis: Primary Impression: Sore throat Condition: Stable Patient Instructions: Pharyngitis, Strep (Presumed) Referrals: [facility] YOU HAVE RECEIVED A MEDICAL SCREENING EXAM AND THE RESULTS INDICATE THAT YOU DO NOT HAVE A CONDITION THAT REQUIRES URGENT TREATMENT IN THE EMERGENCY DEPARTMENT. FURTHER EVALUATION AND TREATMENT OF YOUR CONDITION CAN WAIT UNTIL YOU ARE SEEN IN YOUR DOCTORS OFFICE WITHIN THE NEXT 1-2 DAYS. IT IS YOUR RESPONSIBILITY TO MAKE AN APPOINTMENT FOR FOLOW-UP CARE. IF YOU HAVE A PRIMARY DOCTOR --you should call your primary doctor and schedule an appointment IF YOU DO NOT HAVE A PRIMARY DOCTOR YOU CAN CALL OUR PHYSICIAN REFERRAL HOTLINE AT IF YOU CAN NOT AFFORD TO SEE A PHYSICIAN YOU CAN CHOSE FROM THE FOLLOWING [facility] [address] [facility]. [facility] [address] [facility] [facility] [address] [facility] [address] [facility] [address] [facility]. [facility]. [address] [facility]. [facility] YOU HAVE RECEIVED A MEDICAL SCREENING EXAM AND THE RESULTS INDICATE THAT YOU DO NOT HAVE A CONDITION THAT REQUIRES URGENT TREATMENT IN THE EMERGENCY DEPARTMENT. FURTHER EVALUATION AND TREATMENT OF YOUR CONDITION CAN WAIT UNTIL YOU ARE SEEN IN YOUR DOCTORS OFFICE WITHIN THE NEXT 1-2 DAYS. IT IS YOUR RESPONSIBILITY TO MAKE AN APPOINTMENT FOR FOLOW-UP CARE. IF YOU HAVE A PRIMARY DOCTOR --you should call your primary doctor and schedule and appointment IF YOU DO NOT HAVE A PRIMARY DOCTOR YOU CAN CALL OUR PHYSICIAN REFERRAL HOTLINE AT . IF YOU CAN NOT AFFORD TO SEE A PHYSICIAN YOU CAN CHOSE FROM THE FOLLOWING [facility] INSTITUTIONS: [facility] [id number] [place] [address] [facility] [address] [place], [place] [id number] [place] [address] [address] [place] [address] [facility] URGENT CARE/SPECIALTIES Additional Instructions: Llame al doctor deangelo gilson TOSHIA PARA DENTRO DE [address]ARK[address].Dgale a la secretaria que nosotros le instruimos hacer esta toshia.Avise o llame si conway condicin se empeora antes de la toshia. Regresa aqui si peor o no mejor. JERROD VALENCIA PA-C Feb 21, 2017 15:08 JERROD VALENCIA PA-C Feb 21, 2017 15:08
== END 2017-02-21 17:05 | disposition home or self-care (01) ==
LOC: FTE 14:18
DX: J02.9 Acute pharyngitis, unspecified (principal); E11.9 Type 2 diabetes mellitus without complications
CPT/HCPCS: 99283

== ENCOUNTER 2017-05-06 11:08 | Emergency (ER) | payer MEDICAID ==
[~2017-05-06] VITALS: Ht 165.1 cm; Wt 117.5 kg
[~2017-05-06 11:08] MED LIST changes: +ACET325T33 PO; +AMO500 PO
[2017-05-06 11:13] VITALS: Ht 165.1 cm; Wt 117.5 kg
[2017-05-06 12:19] LABS: ADD UMIC YES; UR ASCORBIC ACID NEGATIVE (NEGATIVE); UR BACTERIA FEW /HPF (NONE SEEN); UR BILIRUBIN (Dip) NEGATIVE (NEGATIVE); UR BLOOD (Dip) 3+ mg/dL (NEGATIVE); UR CLARITY CLEAR (CLEAR); UR COLOR YELLOW (YELLOW); UR GLUCOSE (Dip) NEGATIVE (NEGATIVE); UR KETONES (Dip) NEGATIVE (NEGATIVE); UR LEUKOCYTE ESTERASE (Dip) NEGATIVE Leu/ul (NEGATIVE); UR NITRITE (Dip) NEGATIVE (NEGATIVE); UR RBC 5 /HPF (0-5); UR SPECIFIC GRAVITY (Dip) 1.008 (1.003-1.030); UR TOTAL PROTEIN (Dip) NEGATIVE (NEGATIVE); UR UROBILINOGEN (Dip) NEGATIVE (NEGATIVE)
[2017-05-06] MEDS ORDERED: FLUT9.9S NASAL (12:53)
[2017-05-06] MEDS ORDERED: AMOX1TAB10 PO (12:53)
[2017-05-06] MEDS ORDERED: IBUP-1542 PO (12:53)
[2017-05-06 13:01] VITALS: BP 128/74; PULSE 91; RESP 18; TEMP 98.1
--- NOTE | 2017-05-06 13:01 | ERD ---
ER Documentation Chief Complaint Date/Time DATE: 05/06/17 TIME: 12:58 Chief Complaint sneezing, congestion, cough, headache x 16 days HPI This 36-year-old male complains of a two-week history of cough and congestion. She denies fevers. She is some mild facial pain and bitemporal headache. She she has additional complaints of epigastric pain and diarrhea without blood or mucus. She is here with her daughter with URI symptoms as well. There is no history of chest pain or shortness of breath. ROS All systems reviewed and are negative except as per history of present illness. Medications Home Meds Active Scripts Fluticasone Propionate (Flonase Allergy Relief) 9.9 Ml [place].susp, 2 SPRAY NASAL DAILY, #1 BOTTLE TO EACH NOSTRIL Prov:PLAICDO MILLARD MD 05/06/17 Ibuprofen* (Ibuprofen*) 600 Mg Tablet, 600 MG PO Q6, #20 TAB Prov:PLACIDO MILLARD MD 05/06/17 Amoxicillin/Potassium Clav (Amox-Clav 875-125 mg Tablet) 875-125 mg Tab, 1 TAB PO BID, #20 TAB Prov:PLACIDO MILLARD MD 05/06/17 Amoxicillin* (Amoxicillin*) 500 Mg Cap, 500 MG PO BID for 10 Days, CAP Prov:JERROD VALENCIA PA-C 02/21/17 Acetaminophen* (Tylenol*) 325 Mg Tablet, 2 TAB PO Q6 Y for PAIN AND OR ELEVATED TEMP, #20 TAB Prov:JERROD VALENCIA PA-C 02/21/17 Acetamin/Butalbital/Caffeine* (Fioricet*) [id number] Tab, 1 TAB PO Q6H Y for PAIN, #20 TAB Prov:GONAZLO MONTENEGRO DO 01/21/17 Naproxen* (Naprosyn*) 500 Mg Tablet, 500 MG PO BID Y for PAIN AND/OR INFLAMMATION, #30 TAB Prov:TITI XIE 12/24/16 Acetaminophen* (Tylenol*) 500 Mg Tab, 1000 MG PO Q4H Y for PAIN AND OR ELEVATED TEMP for 3 Days, TAB Prov:ARIS THOMPSON 09/13/16 Ibuprofen* (Motrin*) 600 Mg Tab, 600 MG PO Q6, #30 TAB Prov:MARISOL DOUGLASS PA-C 08/15/16 Loratadine* (Claritin*) 10 Mg Capsule, 10 MG PO DAILY, #30 CAP Prov:GENET DIXON NP 05/04/15 Reported Medications Flaxseed Oil (FLAXSEED) 1,000 Mg Capsule, 1 TAB-CAP PO, CAP 12/24/16 Multivitamin,Therapeutic (Thera-Tabs) 1 Each Tablet, 1 EACH PO DAILY, TAB 12/24/16 Allergies Allergies: Coded Allergies: No Known Drug Allergy (Verified Allergy, Unknown, 12/24/16) PMhx/Soc History of Surgery: Yes (cholecystectomy, C SECTION, tubal Ligation ) Anesthesia Reaction: No Hx Neurological Disorder: No Hx Respiratory Disorders: No Hx Cardiac Disorders: No Hx Psychiatric Problems: No Hx Miscellaneous Medical Probl: Yes (DM TYPE 2 ) Hx Alcohol Use: No Hx Substance Use: No Hx Tobacco Use: No Smoking Status: Never smoker Physical Exam Vitals Vital Signs Date Time Temp Pulse Resp B/P Pulse Ox O2 Delivery O2 Flow Rate FiO2 05/06/17 11:13 98.3 103 18 135/77 96 Physical Exam Const: []Alert, [id number] Head: Atraumatic Eyes: Normal Conjunctiva ENT: Normal External Ears, Nose and Mouth.TMs and oropharynx normal. Neck: Full range of motion..~ No meningismus. Resp: Clear to auscultation bilaterally. Dry cough without rales, rhonchi wheezing or retractions. Cardio: Regular rate and rhythm, no murmurs Abd: Soft, non tender, non distended. Normal bowel sounds Skin: No petechiae or rashes Back: No midline or flank tenderness Ext: No cyanosis, or edema Neur: Awake and alert Psych: Normal Mood and Affect Results 24 hrs Laboratory Tests Test 05/06/17 11:56 05/06/17 12:00 Bedside Glucose 132mg/dL Urine Color YELLOW Urine Clarity CLEAR Urine pH 7.0 Urine Specific [place] 1.008 Urine Ketones NEGATIVEmg/dL Urine Nitrite NEGATIVEmg/dL Urine Bilirubin NEGATIVEmg/dL Urine Urobilinogen NEGATIVEmg/dL Urine Leukocyte Esterase NEGATIVELeu/ul Urine Microscopic RBC 5/HPF Urine Microscopic WBC 2/HPF Urine Bacteria FEW/HPF Urine Hemoglobin 3+mg/dL Urine Glucose NEGATIVEmg/dL Urine Total Protein NEGATIVEmg/dl Procedures/MDM Patient presents with URI symptoms for last 2 weeks. She may have signs of sinusitis as well. Accu-Chek was normal and urine shows no leukocytes, nitrites , glucose, ketones. There is no evidence of ketoacidosis, signs to suggest acute abdomen, hypoxemia or respiratory distress. She will treated with Augmentin, Flonase and ibuprofen and further observation at home and primary care follow-up. The patient was stable with no new complaints during the ER course. Clinically, there is no current evidence to suggest meningitis, sepsis, acute abdomen, pneumonia, acute coronary syndrome, pulmonary embolism, or any other emergent condition appearing to require further evaluation or hospitalization. The patient should certainly return for any new or worsening symptoms per the aftercare instructions. They should otherwise follow-up with her primary care doctor for reevaluation this week. Departure Diagnosis: Primary Impression: Upper respiratory infection URI type: unspecified URI Qualified Code: J06.9 - Upper respiratory tract infection, unspecified type Condition: Stable Patient Instructions: Sinusitis, Abx Tx Referrals: [facility] Usted se angeles hecho un examen mdico de control que le indica que no est en gilson condicin que requiera tratamiento urgente en el Departamento de Emergencia. Un estudio ms profundo y el tratamiento de conway condicin pueden esperar sin ningn riesgo hasta que usted sea atendida/o en el consultorio de conway mdico o gilson cl romel. Es responsabilidad suya arreglar gilson kina para el seguimiento del parul. MANEJO DE CONDICIONES NO URGENTES EN EL FUTURO 1) Si usted tiene un mdico de atencin primaria: Usted debera llamar a conway mdico de atencin primaria antes de venir al departamento de emergencia. Despus de las horas de consultorio, conway doctor o conway asociado/a est disponible por telfono. El mdico o enfermero de berta en el servicio telefnico puede asesorarle por silvina medio para atender el problema, o parul contrario se puede programar gilson kina. 2) Si usted no tiene un mdico de atencin primaria: Llame al mdico o clnica de referencia que aparece abajo dale las horas de consultorio para hacer gilson kina para que le vean. CLINICAS: [facility] [phone] [address] [facility] [phone] [facility] [phone] [place] [phone] [place] [address] [phone] [facility] [phone] [address] Additional Instructions: ORINA Y AZUCAR normal hoy. Cheque otro vez con conway doctor primario en el proximo henderson or regresa para mas o nueva simptomas. PLACIDO MILLARD MD May 06, 2017 13:01
== END 2017-05-06 13:02 | disposition home or self-care (01) ==
LOC: FTE 11:08
DX: J06.9 Acute upper respiratory infection, unspecified (principal); E11.9 Type 2 diabetes mellitus without complications
CPT/HCPCS: 81001; 82962; Z7502; 99283

== ENCOUNTER 2017-06-18 09:03 | Emergency (ER) | payer MEDICAID ==
[~2017-06-18] VITALS: Wt 118.0 kg
[~2017-06-18 09:03] MED LIST changes: -AMO500 PO; +AMOX1TAB10 PO; +AMOX500C2 PO; +FLUT9.9S NASAL
[2017-06-18] MEDS ORDERED: KETOROLAC 30 MG INJ IM STA (09:43)
[2017-06-18] MEDS ORDERED: CETI10CA PO (09:49)
[2017-06-18] MEDS ORDERED: CETI5SOL PO (09:49)
[2017-06-18] MEDS ORDERED: IBUP-1542 PO (09:50)
--- NOTE | 2017-06-18 09:57 | ERD ---
ER Documentation Chief Complaint Date/Time DATE: 06/18/17 TIME: 09:51 Chief Complaint cough, bilat arm/shoulder pains HPI Patient is a 36-year-old female with PMHx of DM presents to the ED for concerns of a dry cough, nasal rhinorrhea and bilateral arm and shoulder pain. She states she has had ongoing nasal rhinorrhea and a dry cough for the last few months. Patient denies any fevers. Patient states she has had bilateral arm pain and shoulder pain for last week. Patient denies any heavy lifting or trauma. Patient denies any falls. Patient denies any chest pain, shortness of breath, nausea, vomiting, diaphoresis, headache or loss of consciousness. Patient has had numerous visits to the emergency department over the last year. Requesting testing for her cholesterol level today. ROS All systems reviewed and are negative except as per history of present illness. Medications Home Meds Active Scripts Ibuprofen* (Motrin*) 600 Mg Tab, 600 MG PO Q6, #30 TAB Prov:LAUREN REYES PA-C 06/18/17 Cetirizine Hcl* (Zyrtec*) 10 Mg Capsule, 10 MG PO DAILY, #10 TAB.CHEW Prov:LAUREN REYES PA-C 06/18/17 Fluticasone Propionate (Flonase Allergy Relief) 9.9 Ml [place].susp, 2 SPRAY NASAL DAILY, #1 BOTTLE TO EACH NOSTRIL Prov:PLACIDO MILLARD MD 05/06/17 Ibuprofen* (Ibuprofen*) 600 Mg Tablet, 600 MG PO Q6, #20 TAB Prov:PLACIDO MILLARD MD 05/06/17 Amoxicillin/Potassium Clav (Amox-Clav 875-125 mg Tablet) 875-125 mg Tab, 1 TAB PO BID, #20 TAB Prov:PLACIDO MILLARD MD 05/06/17 Amoxicillin* (Amoxicillin*) 500 Mg Cap, 500 MG PO BID for 10 Days, CAP Prov:JERROD AVLENCIA PA-C 02/21/17 Acetaminophen* (Tylenol*) 325 Mg Tablet, 2 TAB PO Q6 Y for PAIN AND OR ELEVATED TEMP, #20 TAB Prov:JERROD VALENCIA PA-C 02/21/17 Acetamin/Butalbital/Caffeine* (Fioricet*) [id number] Tab, 1 TAB PO Q6H Y for PAIN, #20 TAB Prov:GONZALO MONTENEGRO DO 01/21/17 Naproxen* (Naprosyn*) 500 Mg Tablet, 500 MG PO BID Y for PAIN AND/OR INFLAMMATION, #30 TAB Prov:TITI XIE 12/24/16 Acetaminophen* (Tylenol*) 500 Mg Tab, 1000 MG PO Q4H Y for PAIN AND OR ELEVATED TEMP for 3 Days, TAB Prov:ARIS THOMPSON 09/13/16 Ibuprofen* (Motrin*) 600 Mg Tab, 600 MG PO Q6, #30 TAB Prov:MARISOL DOUGLASS PA-C 08/15/16 Loratadine* (Claritin*) 10 Mg Capsule, 10 MG PO DAILY, #30 CAP Prov:GENET DIXON NP 05/04/15 Reported Medications Flaxseed Oil (FLAXSEED) 1,000 Mg Capsule, 1 TAB-CAP PO, CAP 12/24/16 Multivitamin,Therapeutic (Thera-Tabs) 1 Each Tablet, 1 EACH PO DAILY, TAB 12/24/16 Discontinued Scripts Cetirizine Hcl* (Cetirizine Hcl*) 5 Mg/5 Ml Solution, 2.5 ML PO DAILY, #4 OZ Prov:LAUREN REYES PA-C 06/18/17 Allergies Allergies: Coded Allergies: No Known Drug Allergy (Verified Allergy, Unknown, 12/24/16) PMhx/Soc History of Surgery: Yes (cholecystectomy, C SECTION, tubal Ligation ) Anesthesia Reaction: No Hx Neurological Disorder: No Hx Respiratory Disorders: No Hx Cardiac Disorders: No Hx Psychiatric Problems: No Hx Miscellaneous Medical Probl: Yes (DM TYPE 2 ) Hx Alcohol Use: No Hx Substance Use: No Hx Tobacco Use: No FmHx Family History: No diabetes Physical Exam Vitals Vital Signs Date Time Temp Pulse Resp B/P Pulse Ox O2 Delivery O2 Flow Rate FiO2 06/18/17 11:08 98.4 86 16 139/70 100 Room Air 06/18/17 09:05 98.2 91 18 172/99 95 Physical Exam GENERAL: Well-developed, well-nourished female. Appears in no acute distress. Speaking in full sentences HEAD: Normocephalic, atraumatic. EYES: Pupils are equally reactive bilaterally. EOMs grossly intact. No conjunctival erythema. ENT: Moist mucous membranes. No uvula deviation. No kissing tonsils. No tonsillar swelling or exudates noted. Cobblestoning appearance noted on the posterior oropharynx. NECK: Supple. No meningismus. Normal range of motion of the neck. LUNG: Clear to auscultation bilaterally. No rhonchi, wheezing, rales or coarse breath sounds. HEART: Regular rate and rhythm. No murmurs, rubs or gallops. ABDOMEN: No scars, ecchymosis or rashes noted. Soft, nontender, and nondistended. Positive bowel sounds in all four quadrants. No rebound tenderness , no guarding. (-) McBurney's point tenderness. No CVA tenderness. BACK: No midline tenderness. EXTREMITIES: Equal pulses bilaterally. No peripheral clubbing, cyanosis or edema. No unilateral leg swelling. Normal range of motion bilateral upper extremities pitting of shoulders and elbows. Tender to palpation of bilateral shoulders. Equal and strong bowling ball engraver strength bilaterally. NEUROLOGIC: Alert and oriented. Moving all four extremities without any difficulty. Normal speech. Steady gait. SKIN: Normal color. Warm and dry. No rashes or lesions. Results 24 hrs Current Medications Medications (Trade) Dose Ordered Sig/Sena Route PRN Reason Start Time Stop Time Status Last Admin Dose Admin Ketorolac Tromethamine (Toradol) 30 mg ONCE STAT IM 06/18/17 09:43 06/18/17 09:44 DC 06/18/17 10:26 Procedures/MDM ED COURSE: The patient was stable throughout ED course. I kept the patient and/or family informed of laboratory and diagnostic imaging results throughout the ED course. PROCEDURES: None. MEDICATIONS GIVEN: Toradol IM Patient tolerated medication well with no adverse reactions. Patient reported improvement in pain. MEDICAL DECISION MAKIN-year-old female who presents to the ED for concerns of nasal rhinorrhea and a dry cough for many months as well as bilateral shoulder pain 1 week. Patient denied any falls or trauma. Patient denied any heavy lifting. Patient denied any chest pain or shortness of breath.. Vital signs were reviewed. Patient was afebrile. Patient was not hypoxic. ENT exam revealed findings consistent with allergic rhinitis. In addition patient's bilateral arm pain is likely related to musculoskeletal pain versus osteoarthritis. She reported improvement in symptoms after Toradol. Low suspicion for cardiac etiology at this time. Low for ACS at this time. Low suspicion fracture, dislocation. Low suspicion for pneumonia, meningitis, sinusitis, otitis externa, acute otitis media, strep pharyngitis, epiglottitis or peritonsillar abscess. Suspicion for hypertensive emergency or urgency. Patient was advised to follow-up with her primary care physician for her elevated blood pressures as well as for testing for fasting cholesterol levels. PRESCRIPTIONS: Zyrtec, Ibuprofen DISCHARGE: At this time, patient is stable for discharge and outpatient management. Supportive therapies such as OTC throat lozenges, salt water gurgles, popsicles and jello discussed. I have instructed the patient to follow-up with his/her primary care physician in 1-2 days. I have instructed the patient to promptly return to the ER for any new or worsening symptoms including increased pain, swelling, fever, nausea, vomiting, weakness or difficulty breathing. The patient and/or family expressed understanding of and agreement with this plan. All questions were answered. Home care instructions were provided. Disclaimer: Inadvertent spelling and grammatical errors are likely due to EHR/ dictation software use and do not reflect on the overall quality of patient care. Also, please note that the electronic time recorded on this note does not necessarily reflect the actual time of the patient encounter. Patients blood pressure was elevated (>120/80) but appears stable without evidence of hypertensive emergency, hypertensive urgency or end-organ failure. I had discussion with the patient about the risks of hypertension. I have advised the patient to follow up with his/her primary care physician for outpatient monitoring and treatment for hypertension in 2-3 days. I have instructed the patient to return to the ER for any new or worsening symptoms including chest pain, shortness of breath, headache, blurred vision, confusion, nausea, vomiting or LOC. Departure Diagnosis: Primary Impression: Bilateral arm pain Additional Impression: Allergic rhinitis Chronicity: unspecified Allergic rhinitis trigger: unspecified Allergic rhinitis seasonality: unspecified seasonality Qualified Code: J30.9 - Allergic rhinitis, unspecified chronicity, unspecified seasonality, unspecified trigger Condition: Stable Patient Instructions: Allergic Rhinitis Referrals: [facility] YOU HAVE RECEIVED A MEDICAL SCREENING EXAM AND THE RESULTS INDICATE THAT YOU DO NOT HAVE A CONDITION THAT REQUIRES URGENT TREATMENT IN THE EMERGENCY DEPARTMENT. FURTHER EVALUATION AND TREATMENT OF YOUR CONDITION CAN WAIT UNTIL YOU ARE SEEN IN YOUR DOCTORS OFFICE WITHIN THE NEXT 1-2 DAYS. IT IS YOUR RESPONSIBILITY TO MAKE AN APPOINTMENT FOR FOLOW-UP CARE. IF YOU HAVE A PRIMARY DOCTOR --you should call your primary doctor and schedule an appointment IF YOU DO NOT HAVE A PRIMARY DOCTOR YOU CAN CALL OUR PHYSICIAN REFERRAL HOTLINE AT IF YOU CAN NOT AFFORD TO SEE A PHYSICIAN YOU CAN CHOSE FROM THE FOLLOWING [facility] [address] [facility] [address] [facility] [address] [facility] [address] [facility] [address] [facility] [address] [facility] [address] [facility]. [facility] YOU HAVE RECEIVED A MEDICAL SCREENING EXAM AND THE RESULTS INDICATE THAT YOU DO NOT HAVE A CONDITION THAT REQUIRES URGENT TREATMENT IN THE EMERGENCY DEPARTMENT. FURTHER EVALUATION AND TREATMENT OF YOUR CONDITION CAN WAIT UNTIL YOU ARE SEEN IN YOUR DOCTORS OFFICE WITHIN THE NEXT 1-2 DAYS. IT IS YOUR RESPONSIBILITY TO MAKE AN APPOINTMENT FOR FOLOW-UP CARE. IF YOU HAVE A PRIMARY DOCTOR --you should call your primary doctor and schedule and appointment IF YOU DO NOT HAVE A PRIMARY DOCTOR YOU CAN CALL OUR PHYSICIAN REFERRAL HOTLINE AT . IF YOU CAN NOT AFFORD TO SEE A PHYSICIAN YOU CAN CHOSE FROM THE FOLLOWING [facility] [address] [place] [address] [facility] [address] [place] [address] [facility] [address] [place] [address] Additional Instructions: Call your primary care doctor TOMORROW for an appointment during the next 1-2 days.See the doctor sooner or return here if your condition worsens before your appointment time. Follow up with your primary care physician for cholesterol testing and further management of her elevated blood pressures. LAUREN REYES PA-C Jun 18, 2017 09:56
[2017-06-18 11:08] VITALS: BP 139/70; PULSE 86; RESP 16; TEMP 98.4
== END 2017-06-18 11:10 | disposition home or self-care (01) ==
LOC: FTE 09:03
DX: M79.602 Pain in left arm (principal); M79.601 Pain in right arm; J30.9 Allergic rhinitis, unspecified; E11.9 Type 2 diabetes mellitus without complications
CPT/HCPCS: 96372; J1885; Z7502

== ENCOUNTER 2017-08-02 23:16 | Emergency (ER) | payer MEDICAID ==
[~2017-08-02] VITALS: Ht 162.6 cm; Wt 121.1 kg
[~2017-08-02 23:16] MED LIST changes: +CETI10CA PO
[2017-08-02 23:19] VITALS: Ht 162.6 cm; Wt 121.1 kg
--- NOTE | 2017-08-03 00:42 | ERD ---
ER Documentation Chief Complaint Chief Complaint General body numbness HPI The patient is 36-year-old female, presenting to the ER because of general body numbness, she feels as if her body is hot and cold, minimal dizziness while she was sitting down a few hours ago at 10 pm. The symptom has gotten better, she feels much better now. She is under a lot of stress, denies fever, chills, headache, neck pain, chest pain, dyspnea, abdominal pain, vomiting, dysuria, diarrhea. She does not smoke nor drink Past medical history: None Past surgical history: , tubal ligation, cholecystectomy ROS All systems reviewed and are negative except as per history of present illness. Medications Home Meds Active Scripts Ibuprofen* (Motrin*) 600 Mg Tab, 600 MG PO Q6, #30 TAB Prov:LAUREN REYES PA-C 06/18/17 Cetirizine Hcl* (Zyrtec*) 10 Mg Capsule, 10 MG PO DAILY, #10 TAB.CHEW Prov:LAUREN REYES PA-C 06/18/17 Fluticasone Propionate (Flonase Allergy Relief) 9.9 Ml [place].susp, 2 SPRAY NASAL DAILY, #1 BOTTLE TO EACH NOSTRIL Prov:PLACIDO MILLARD MD 05/06/17 Ibuprofen* (Ibuprofen*) 600 Mg Tablet, 600 MG PO Q6, #20 TAB Prov:PLACIDO MILLARD MD 05/06/17 Amoxicillin/Potassium Clav (Amox-Clav 875-125 mg Tablet) 875-125 mg Tab, 1 TAB PO BID, #20 TAB Prov:PLACIDO MILLARD MD 05/06/17 Amoxicillin* (Amoxicillin*) 500 Mg Cap, 500 MG PO BID for 10 Days, CAP Prov:JERROD VALENCIA PA-C 02/21/17 Acetaminophen* (Tylenol*) 325 Mg Tablet, 2 TAB PO Q6 Y for PAIN AND OR ELEVATED TEMP, #20 TAB Prov:JERROD VALENCIA PA-C 02/21/17 Acetamin/Butalbital/Caffeine* (Fioricet*) [id number] Tab, 1 TAB PO Q6H Y for PAIN, #20 TAB Prov:GONZALO MONTENEGRO DO 01/21/17 Naproxen* (Naprosyn*) 500 Mg Tablet, 500 MG PO BID Y for PAIN AND/OR INFLAMMATION, #30 TAB Prov:TITI XIE 12/24/16 Acetaminophen* (Tylenol*) 500 Mg Tab, 1000 MG PO Q4H Y for PAIN AND OR ELEVATED TEMP for 3 Days, TAB Prov:DONNAARIS Mejia 09/13/16 Ibuprofen* (Motrin*) 600 Mg Tab, 600 MG PO Q6, #30 TAB Prov:MARISOL DOUGLASS PA-C 08/15/16 Loratadine* (Claritin*) 10 Mg Capsule, 10 MG PO DAILY, #30 CAP Prov:GENET DIXON NP 05/04/15 Reported Medications Flaxseed Oil (FLAXSEED) 1,000 Mg Capsule, 1 TAB-CAP PO, CAP 12/24/16 Multivitamin,Therapeutic (Thera-Tabs) 1 Each Tablet, 1 EACH PO DAILY, TAB 12/24/16 Allergies Allergies: Coded Allergies: No Known Drug Allergy (Verified Allergy, Unknown, 12/24/16) PMhx/Soc History of Surgery: Yes (cholecystectomy, C SECTION, tubal Ligation ) Anesthesia Reaction: No Hx Neurological Disorder: No Hx Respiratory Disorders: No Hx Cardiac Disorders: No Hx Psychiatric Problems: No Hx Miscellaneous Medical Probl: Yes (DM TYPE 2 ) Hx Alcohol Use: No Hx Substance Use: No Hx Tobacco Use: No Physical Exam Vitals Vital Signs Date Time Temp Pulse Resp B/P Pulse Ox O2 Delivery O2 Flow Rate FiO2 08/02/17 23:19 98.3 114 20 186/103 98 Physical Exam Const: No acute distress. Anxious Head: Atraumatic. Eyes: Normal Conjunctiva. ENT: Normal External Ears, Nose and Mouth. Neck: Full range of motion. No meningismus. Resp: Clear to auscultation bilaterally. Cardio: Regular rate and rhythm. Abd: Soft, non distended, normal bowel sounds, non tender. Skin: No petechiae or rashes. Back: No midline or flank tenderness. Ext: No cyanosis, or edema. Neur: Awake and alert. No focal deficit Psych: Normal Mood and Affect. Results 24 hrs Current Medications Medications (Trade) Dose Ordered Sig/Sena Route PRN Reason Start Time Stop Time Status Last Admin Dose Admin Lorazepam (Ativan) 0.5 mg ONCE ONCE PO 08/03/17 01:00 08/03/17 01:01 DC 08/03/17 01:12 Procedures/MDM EKG: Read by emergency physician Rate/Rhythm: Sinus tachycardia 111 beats/min QRS, ST, T-waves: No ST elevation, no T inversion, left atrial enlargement Impression: Abnormal EKG MEDICAL MAKING DECISION: The patient is a 36-year-old female, presenting to the ER because of acute stress, anxiety attack. She was treated with Ativan 0.5 mg p.o. with good response. The differential diagnoses considered include but are not limited to anxiety attack, panic attack, hyperventilation syndrome, thyroidism, pe Departure Diagnosis: Primary Impression: Anxiety Condition: Good Comments The patient's blood pressure was elevated (>120/80) but appears stable without evidence of hypertension emergency or urgency. The patient was counseled about the risks of hypertension and urged to pursue outpatient monitoring and therapy within a week with their primary care physician. I discussed the findings with the patient. I advised the patient to follow-up with the primary physician in about 1-2 days, sooner if needed and return if any concern. Disclaimer: Inadvertent spelling and grammatical errors are likely due to EHR/ dictation software use and do not reflect on the overall quality of patient care. Also, please note that the electronic time recorded on this note does not necessarily reflect the actual time of the patient encounter. DAWNA CELAYA MD Aug 03, 2017 00:42
[2017-08-03] MEDS ORDERED: LORAZEPAM 0.5 MG TAB PO ONE (01:00)
[2017-08-03 01:35] VITALS: BP 166/99; PULSE 99; RESP 20
== END 2017-08-03 01:34 | disposition home or self-care (01) ==
LOC: E/R 23:16
DX: F41.9 Anxiety disorder, unspecified (principal); E11.9 Type 2 diabetes mellitus without complications
CPT/HCPCS: Z7502; Z7610; 93005; 99283

== ENCOUNTER 2019-01-28 15:33 | Emergency (ER) | payer MEDICAID ==
[~2019-01-28] VITALS: Ht 162.6 cm; Wt 112.0 kg
[~2019-01-28 15:33] MED LIST changes: -NAPR-260 PO; +NAPR-985 PO
[2019-01-28 15:36] VITALS: BP 189/77; PULSE 90; RESP 18; Ht 162.6 cm; Wt 112.0 kg
--- NOTE | 2019-01-28 17:31 | ERD ---
ER Documentation Chief Complaint Chief Complaint headache , dizinness , body ache x 2months , worse today HPI Patient 38-year-old female presenting to ER with chief complaint of headache dizziness body aches for 2 months. Patient states symptoms worsened today patient denies any past medical history. Patient states she is not under the care of any primary care provider. ROS All systems reviewed and are negative except as per history of present illness. Medications Home Meds Active Scripts Acetaminophen* (Tylenol*) 325 Mg Tablet, 2 TAB PO Q8 PRN for PAIN AND OR ELEVATED TEMP, #20 TAB Prov:CANELO BUSTILLO PA-C 01/28/19 Ibuprofen* (Motrin*) 600 Mg Tab, 600 MG PO Q6, #30 TAB Prov:LAUREN REYES PA-C 06/18/17 Cetirizine Hcl* (Zyrtec*) 10 Mg Capsule, 10 MG PO DAILY, #10 TAB.CHEW Prov:LAUREN REYES PA-C 06/18/17 Fluticasone Propionate (Flonase Allergy Relief) 9.9 Ml [place].susp, 2 SPRAY NASAL DAILY, #1 BOTTLE TO EACH NOSTRIL Prov:PLACIDO MILLARD MD 05/06/17 Ibuprofen* (Ibuprofen*) 600 Mg Tablet, 600 MG PO Q6, #20 TAB Prov:PLACIDO MILLARD MD 05/06/17 Amoxicillin/Potassium Clav (Amox-Clav 875-125 mg Tablet) 875-125 mg Tab, 1 TAB PO BID, #20 TAB Prov:PLACIDO MILLARD MD 05/06/17 Amoxicillin* (Amoxicillin*) 500 Mg Cap, 500 MG PO BID for 10 Days, CAP Prov:JERROD VALENCIA PA-C 02/21/17 Acetaminophen* (Tylenol*) 325 Mg Tablet, 2 TAB PO Q6 PRN for PAIN AND OR ELEVATED TEMP, #20 TAB Prov:JERROD VALENCIA PA-C 02/21/17 Acetamin/Butalbital/Caffeine* (Fioricet*) [id number] Tab, 1 TAB PO Q6H PRN for PAIN, #20 TAB Prov:GONZALO MONTENEGRO DO 01/21/17 Naproxen* (Naprosyn*) 500 Mg Tablet, 500 MG PO BID PRN for PAIN AND/OR INFLAMMATION, #30 TAB Prov:TITI XIE MD 12/24/16 Acetaminophen* (Tylenol*) 500 Mg Tab, 1000 MG PO Q4H PRN for PAIN AND OR ELEV ATED TEMP for 3 Days, TAB Prov:ARIS THOMPSON 09/13/16 Ibuprofen* (Motrin*) 600 Mg Tab, 600 MG PO Q6, #30 TAB Prov:MARISOL DOUGLASS PA-C 08/15/16 Loratadine* (Claritin*) 10 Mg Capsule, 10 MG PO DAILY, #30 CAP Prov:GENET DIXON NP 05/04/15 Reported Medications Flaxseed Oil (FLAXSEED) 1,000 Mg Capsule, 1 TAB-CAP PO, CAP 12/24/16 Multivitamin,Therapeutic (Thera-Tabs) 1 Each Tablet, 1 EACH PO DAILY, TAB 12/24/16 Allergies Allergies: Coded Allergies: No Known Drug Allergy (Verified Allergy, Unknown, 12/24/16) PMhx/Soc Medical and Surgical Hx: pt denies Medical Hx, pt denies Surgical Hx History of Surgery: Yes (GALLBLADDER) Anesthesia Reaction: No Hx Neurological Disorder: No Hx Respiratory Disorders: No Hx Cardiac Disorders: No Hx Miscellaneous Medical Probl: Yes (DM TYPE 2 ) Hx Alcohol Use: No Hx Substance Use: No Hx Tobacco Use: No Smoking Status: Never smoker FmHx Family History: No diabetes, No coronary disease, No other Physical Exam Vitals Vital Signs Date Temp Pulse Resp B/P (MAP) Pulse Ox O2 O2 Flow FiO2 Time Delivery Rate 01/28/19 99.1 90 18 189/77 100 15:36 (114) Physical Exam GENERAL: Patient appears tired and lethargic. HEENT: Atraumatic. Conjunctivae are pink. Pupils equal, round, and reactive to light. There is no scleral icterus. Tympanic membranes clear bilaterally. Oropharynx clear. No nystagmus or photophobia. NECK: C-spine is soft and supple. There is no meningismus. There is no cervical lymphadenopathy. CHEST: Clear to auscultation bilaterally. There are no rales, wheezes or rhonchi. HEART: Regular rate and rhythm. No murmurs, clicks, rubs or gallops. ABDOMEN:Soft, nontender and nondistended. Good bowel sounds. No rebound or guarding. No gross peritonitis. No gross organomegaly or masses. No Mendez sign or McBurney point tenderness. BACK: No midline or flank tenderness. EXTREMITIES: Equal pulses bilaterally. There is no peripheral clubbing, cyanosis or edema. No focal swelling or erythema. Full range of motion. Grossly neurovascularly intact. SKIN: There is no apparent rash or petechiae. The skin is warm and dry. Result Diagram: 01/28/19 1700 Results 24 hrs Laboratory Tests Test 01/28/19 17:00 01/28/19 17:09 White Blood Count 17.4 10^3/ul Red Blood Count 4.87 10^6/ul Hemoglobin 12.4 g/dl Hematocrit 39.1 % Mean Corpuscular Volume 80.3 fl Mean Corpuscular Hemoglobin 25.5 pg Mean Corpuscular Hemoglobin Concent 31.7 g/dl Red Cell Distribution Width 13.5 % Platelet Count 422 10^3/UL Mean Platelet Volume 9.5 fl Immature Granulocytes % 0.300 % Neutrophils % 59.5 % Lymphocytes % 33.1 % Monocytes % 4.2 % Eosinophils % 2.4 % Basophils % 0.5 % Nucleated Red Blood Cells % 0.0 /100WBC Immature Granulocytes # 0.060 10^3/ul Neutrophils # 10.4 10^3/ul Lymphocytes # 5.8 10^3/ul Monocytes # 0.7 10^3/ul Eosinophils # 0.4 10^3/ul Basophils # 0.1 10^3/ul Nucleated Red Blood Cells # 0.0 10^3/ul Bedside Urine pH (LAB) 6.0 Bedside Urine Protein (LAB) Negative Bedside Urine Glucose (UA) Negative Bedside Urine Ketones (LAB) Negative Bedside Urine Blood 1+ Bedside Urine Nitrite (LAB) Negative Bedside Urine Leukocyte Esterase (L Negative Current Medications Medications Dose Sig/Sena Start Time Status Last (Trade) Ordered Route PRN Stop Time Admin Dose Reason Admin Clonidine 0.1 mg ONCE ONCE 01/28/19 DC 01/28/19 ([facility]) PO 17:00 17:05 01/28/19 17:01 Procedures/MDM ED course: HPI and physical exam performed Patient given clonidine for elevated blood pressure EKG obtained UA CBC The patient was stable throughout the ED course. The patient and/or family informed of laboratory and diagnostic imaging results throughout the ED course. EKG: Read by Dr. Sy EKG shows normal sinus rhythm at rate of 85 No arrhythmias, acute ST elevations or T wave changes were noted. Procedures: None Medications given in ER: Clonidine Patient tolerated medication well with no adverse reactions. Patient reported improvement in pain. Medical decision makin-year-old female presented to the ER for headache dizziness body aches x2 months. Patient does not have a primary care provider. On patient intake patient had blood pressure of 189/77, patient was given clonidine on reassessment patient's blood pressure dropped to 156/74. Patient's EKG was unremarkable. Patient states she has had some dysuria but UA was unremarkable and patient had no CVA tenderness. Since abdomen was soft nontender McBurney's point was unremarkable, patient's right upper quadrant was soft nontender Mendez's point was unremarkable. Patient's left lower abdominal region soft nontender. Patient denies any blood in stool or urine. The patient denies any recent weight loss. The patient has had the symptoms for for 2 months. I have low suspicion for appendicitis, cholecystitis, bowel obstruction, infectious colitis, perforated viscus, pancreatitis, ovarian torsion, abdominal abscess, sepsis Patient's CBC showed slight elevation in white count, but physical exam was unremarkable. Patient remained afebrile. Patient was able to touch chin to chest has good range of motion in her neck region. The patient denies any neck stiffness or pain when moving her head around. Patient did not have any nausea vomiting diarrhea or worsening of symptoms during her ER stay. Patient's O2 saturations were 100% on room air patient's lungs were clear bilateral. Patient had no nystagmus, patient's ears eyes nose and throat were unremarkable on physical exam. Patient had good oil rigger strength bilateral no asymmetry in face no facial droop no slurred speech and no muscle weakness. At this time I have low suspicion for TIA or stroke. Patient states that her dizziness has resided and the patient's pain has improved since being in the ER. Patient was advised that if symptoms worsen or if she develops fever, worsening abdominal pain, back pain, night sweats, confusion, blurred vision, to return to the ER immediately. Discussed with patient of concerns of her having high blood pressure upon arrival and the importance to establish care with a doctor. Risk associated with uncontrolled hypertension was discussed with the patient. Patient understands the risks associated with not addressing this issue and establishing care with a primary care provider. The patient was advised that she needs to follow-up within 1 to 2 days regarding this visit. The patient was given resources for the community clinic and resources on how to establish care with a primary care provider. The patient had no questions upon discharge. Prescription for home: , Tylenol, side effects of this medication was discussed with the patient and proper use prior to discharge. Discharge: At this time, patient is stable for discharge and outpatient management. I have instructed the patient to follow-up with his\her primary care physician in 1 to 2 days. I have discussed with the patient the possibility of needing to see a specialist for further work-up and imaging studies if symptoms persist. I have instructed the patient to promptly return to the ER for any new or worsening symptoms including increased pain, fever, nausea, vomiting, weakness or LOC. The patient and\or family expressed understanding of and agreement with this plan. All questions were answered. Home care instructions were provided. Disclaimer: Inadvertent spelling and grammatical errors are likely due to EHR\dictation software use and do not reflect on the overall quality of patient care. Also, please note that the electronic time recorded on the note does not necessarily reflect the actual time of the patient encounter. Departure Diagnosis: Primary Impression: Body aches Additional Impression: Elevated blood pressure reading Condition: Stable Referrals: [facility] CANELO BUSTILLO PA-C January 28, 2019 17:31
[2019-01-28] MEDS ORDERED: ACET325T33 PO (18:05)
== END 2019-01-28 18:16 | disposition home or self-care (01) ==
LOC: FTE 15:33
DX: R03.0 Elevated blood-pressure reading, without diagnosis of hypertension (principal); R52 Pain, unspecified; E11.9 Type 2 diabetes mellitus without complications
CPT/HCPCS: 81003; 85025; 93005; Z7502; Z7610

== ENCOUNTER 2019-03-13 22:30 | Emergency (ER) | payer SELFPAY ==
[~2019-03-13] VITALS: Ht 165.1 cm; Wt 112.7 kg
[2019-03-13 22:33] VITALS: BP 179/6; PULSE 96; RESP 18; Ht 165.1 cm; Wt 112.7 kg
== END 2019-03-14 02:33 | disposition left against medical advice (07) ==
LOC: FTE 22:30
DX: Z53.21 Procedure and treatment not carried out due to patient leaving prior to being seen by health care provider (principal)

== ENCOUNTER 2019-05-03 19:50 | Emergency (ER) | payer MEDICAID ==
[~2019-05-03] VITALS: Ht 157.5 cm; Wt 114.9 kg
[2019-05-03 19:59] VITALS: Ht 157.5 cm; Wt 114.9 kg
[2019-05-03] MEDS ORDERED: ASPIRIN 325 MG TAB PO STA (23:06)
[2019-05-03] MEDS ORDERED: LORAZEPAM 2 MG INJ IV ONE (23:30)
[2019-05-04 01:36] VITALS: BP 122/78; PULSE 78; RESP 16
== END 2019-05-04 01:39 | disposition home or self-care (01) ==
LOC: E/R 19:50
DX: I10 Essential (primary) hypertension (principal); F41.9 Anxiety disorder, unspecified; R40.2142 Coma scale, eyes open, spontaneous, at arrival to emergency department; R40.2362 Coma scale, best motor response, obeys commands, at arrival to emergency department; R40.2252 Coma scale, best verbal response, oriented, at arrival to emergency department
CPT/HCPCS: 36415; 71045; 80048; 81025; 84484; 85025; 93005; 96374; J2060; Z7502; Z7610